=== PATIENT | male | born 1950 | race Caucasian/White ===

== ENCOUNTER 2017-09-30 20:24 | Emergency (ER) | payer OTHER, MEDICAID ==
[~2017-09-30 20:24] MED LIST: CHLO25 PO; DOCU1CAP39 PO; OXYC5 PO; PROT40TA PO
== END 2017-09-30 22:10 | disposition left against medical advice (07) ==
LOC: NED 20:24
DX: R06.02 Shortness of breath (principal)
CPT/HCPCS: 99281

== ENCOUNTER 2017-10-20 21:17 | Observation (INO) | payer OTHER, MEDICAID ==
[~2017-10-20] VITALS: Ht 182.9 cm; Wt 68.9 kg
[2017-10-20 21:24] VITALS: BP 155/89; PULSE 103; RESP 20; TEMP 98.7; O2SAT 95
[2017-10-20] MEDS ORDERED: VENTAER INH (21:36)
[2017-10-20] MEDS ORDERED: PROT40TA PO (21:37)
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
[2017-10-20] MEDS ORDERED: SODIUM CHLORIDE 0.9% FLUSH 10 ML FLUSH IVF PRN (22:00)
[2017-10-20 22:17] LABS: BASOPHIL # 0.1 TH/MM3 (0-0.2); BASOPHIL % 0.8 % (0.0-2.0); EOSINOPHIL # 0.3 TH/MM3 (0-0.4); HEMATOCRIT 44.5 % (39.0-51.0); HEMOGLOBIN 15.1 GM/DL (13.0-17.0); LYMPH % 37.4 % (9.0-44.0); LYMPHOCYTE # 2.3 TH/MM3 (1.0-4.8); MEAN CELL VOLUME 101.2 FL (80.0-100.0); MEAN CORPUSCULAR HEMOGLOBIN 34.3 PG (27.0-34.0); MEAN CORPUSCULAR HGB CONC 33.9 % (32.0-36.0); MEAN PLATELET VOLUME 7.4 FL (7.0-11.0); MONO % 9.1 % (0.0-8.0); MONOCYTE # 0.6 TH/MM3 (0-0.9); NEUT % 48.7 % (16.0-70.0); PLATELET COUNT 236 TH/MM3 (150-450); RED CELL DISTRIBUTION WIDTH 14.4 % (11.6-17.2); WHITE BLOOD COUNT 6.3 TH/MM3 (4.0-11.0)
[2017-10-20 22:31] LABS: PROTHROMBIN TIME - PATIENT 10.1 SEC (9.8-11.6)
[2017-10-20 22:33] LABS: ALBUMIN 3.6 GM/DL (3.4-5.0); DIRECT BILIRUBIN ADULT 0.1 MG/DL (0.0-0.2)
[2017-10-20 22:36] LABS: BICARBONATE 22.2 MEQ/L (21.0-32.0); BLOOD UREA NITROGEN 5 MG/DL (7-18); CALCIUM 7.7 MG/DL (8.5-10.1); CHLORIDE 108 MEQ/L (98-107); CREATININE 0.88 MG/DL (0.60-1.30); GLOMERULAR FILTRATION RATE 86 ML/MIN (>89); GLUCOSE,RANDOM 99 MG/DL (74-106); MAGNESIUM 1.9 MG/DL (1.5-2.5); SODIUM (NA) 143 MEQ/L (136-145)
[2017-10-20 22:37] LABS: INDIRECT BILIRUBIN 0.2 MG/DL (0.0-0.8); TOTAL BILIRUBIN ADULT 0.3 MG/DL (0.2-1.0); TOTAL PROTEIN 6.8 GM/DL (6.4-8.2)
[2017-10-20 22:41] LABS: TROPONIN I LESS THAN 0.02 NG/ML (0.02-0.05)
[2017-10-21] VITALS (11 sets, daily range): BP systolic 108–148; BP diastolic 61–79; PULSE 66–140; RESP 16–24; TEMP 98–98.6; O2SAT 94–97
--- NOTE | 2017-10-21 01:21 | PD ---
Physical Exam Narrative I, Dr. Bernard, have reviewed the advance practice practitioner's documentation and am in agreement, met with the patient face to face, made the diagnosis, and the medical decision making was done by me. *My assessment and Findings: ACS vs. alcohol intoxication vs. musculoskeletal pain vs. GERD 67yo M here with c/o left sided chest pain. Said he had some numbness/tingling in his left arm as well. Pt currently has no chest pain. Pt did drink alcohol and drinks daily. +Cig smoker. Pt has expiratory wheezing on exam and denies any worsening sob but does want nebulizer treatments so they were given. Also given prednisone. Pt likely wheezing at baseline. Labs reviewed, no leukocytosis. H/H normal. Troponin negative. AST elevated at 75. Blood alcohol 291. CXR showed no evidence of acute cardiopulmonary disease. Pt last had stress test in 2014 as per our record and he said it has been a few years. Although pt is intoxicated, he is 67yo and has cardiac risk factors so will admit him for observation for chest pain center. Will also place pt on CIWA. Data Data Last Documented VS Vital Signs Date Time Temp Pulse Resp B/P (MAP) Pulse Ox O2 Delivery O2 Flow Rate FiO2 10/20/17 23:13 Room Air 10/20/17 21:24 98.7 103 20 155/89 (111) 95 Orders Orders Electrocardiogram (10/20/17 21:49) Basic Metabolic Panel (Bmp) (10/20/17 21:49) Ckmb (Isoenzyme) Profile (10/20/17 21:49) Complete Blood Count With Diff (10/20/17 21:49) Magnesium (Mg) (10/20/17 21:49) Prothrombin Time / Inr (Pt) (10/20/17 21:49) Act Partial Throm Time (Ptt) (10/20/17 21:49) Troponin I (10/20/17 21:49) Lipase (10/20/17 21:49) Ecg Monitoring (10/20/17 21:49) Bilateral Bp Monitoring (10/20/17 21:49) Iv Access Insert/Monitor (10/20/17 21:49) Oximetry (10/20/17 21:49) Oxygen Administration (10/20/17 21:49) Sodium Chloride 0.9% Flush (Ns Flush) (10/20/17 22:00) Alcohol (Ethanol) (10/20/17 21:49) Hepatic Functional Panel (10/20/17 21:59) Chest, Pa & Lat (10/20/17 ) Albuterol-Ipratropium Neb (Duoneb Neb) (10/21/17 01:45) Prednisone (Deltasone) (10/21/17 01:45) Admit Order (Ed Use Only) (10/21/17 01:52) Activity Bed Rest With Brp (10/21/17 01:52) Vital Signs (Adult) Q4H (10/21/17 01:52) Cardiac Rhythm .As Directed (10/21/17 01:52) Notify Dr: Other .PRN (10/21/17 01:52) Notify Parameters (10/21/17 01:52) Resp Oxygen Nasal Cannula (10/21/17 ) Ckmb (Isoenzyme) Profile (10/21/17 01:52) Ckmb (Isoenzyme) Profile (10/21/17 04:52) Troponin I (10/21/17 01:52) Troponin I (10/21/17 04:52) Electrocardiogram (10/21/17 01:52) Electrocardiogram (10/21/17 04:52) ^ Obtain (10/21/17 01:52) Sodium Chloride 0.9% Flush (Ns Flush) (10/21/17 02:00) Sodium Chloride 0.9% Flush (Ns Flush) (10/21/17 09:00) Spray Booth Operator / Telemetry EARL.Q8H (10/21/17 01:52) Alcohol Withdrawal Asmt-Ciwa ONCE (10/21/17 01:57) Flumazenil Inj (Romazicon Inj) (10/21/17 02:00) Lorazepam (Ativan) (10/21/17 02:00) Lorazepam Inj (Ativan Inj) (10/21/17 02:00) Lorazepam (Ativan) (10/21/17 02:00) Lorazepam Inj (Ativan Inj) (10/21/17 02:00) Lorazepam Inj (Ativan Inj) (10/21/17 02:00) Lorazepam Inj (Ativan Inj) (10/21/17 02:00) Labs Laboratory Tests Test 10/20/17 22:06 White Blood Count 6.3 TH/MM3 Red Blood Count 4.40 MIL/MM3 Hemoglobin 15.1 GM/DL Hematocrit 44.5 % Mean Corpuscular Volume 101.2 FL Mean Corpuscular Hemoglobin 34.3 PG Mean Corpuscular Hemoglobin Concent 33.9 % Red Cell Distribution Width 14.4 % Platelet Count 236 TH/MM3 Mean Platelet Volume 7.4 FL Neutrophils (%) (Auto) 48.7 % Lymphocytes (%) (Auto) 37.4 % Monocytes (%) (Auto) 9.1 % Eosinophils (%) (Auto) 4.0 % Basophils (%) (Auto) 0.8 % Neutrophils # (Auto) 3.0 TH/MM3 Lymphocytes # (Auto) 2.3 TH/MM3 Monocytes # (Auto) 0.6 TH/MM3 Eosinophils # (Auto) 0.3 TH/MM3 Basophils # (Auto) 0.1 TH/MM3 CBC Comment DIFF FINAL Differential Comment Prothrombin Time 10.1 SEC Prothromb Time International Ratio 1.0 RATIO Activated Partial Thromboplast Time 24.7 SEC Blood Urea Nitrogen 5 MG/DL Creatinine 0.88 MG/DL Random Glucose 99 MG/DL Calcium Level 7.7 MG/DL Magnesium Level 1.9 MG/DL Sodium Level 143 MEQ/L Potassium Level 4.1 MEQ/L Chloride Level 108 MEQ/L Carbon Dioxide Level 22.2 MEQ/L Anion Gap 13 MEQ/L Estimat Glomerular Filtration Rate 86 ML/MIN Total Bilirubin 0.3 MG/DL Direct Bilirubin 0.1 MG/DL Indirect Bilirubin 0.2 MG/DL Aspartate Amino Transf (AST/SGOT) 75 U/L Alanine Aminotransferase (ALT/SGPT) 64 U/L Alkaline Phosphatase 95 U/L Total Creatine Kinase 84 U/L Troponin I LESS THAN 0.02 NG/ML Total Protein 6.8 GM/DL Albumin 3.6 GM/DL Lipase 314 U/L Ethyl Alcohol Level 291 MG/DL [facility] Supervised Visit with SARA: Yes Interpretation(s) EKG: Sinus tachycardia at 102bpm. Normal axis. No significant ST elevation or depression. Diagnosis Primary Impression: Chest pain Qualified Codes: R07.9 - Chest pain, unspecified Additional Impressions: Alcohol abuse COPD (chronic obstructive pulmonary disease) Qualified Codes: J44.9 - Chronic obstructive pulmonary disease, unspecified Admitting Information Admitting Physician Requests: Observation Med/Other Pt SpecificInfo: Prescription(s) given Scripts Albuterol 18 GM Inh (Ventolin Hfa 18 GM Inh) 90 Mcg/Act Aer 2 PUFF INH Q4H Y for SHORTNESS OF BREATH, #1 INHALER 0 Refills Prov: Meri Bernard DO 10/21/17 Prednisone (Prednisone) 50 Mg Tab 50 MG PO DAILY for 5 Days, #5 TAB 0 Refills Prov: Meri Bernard DO 10/21/17 Meri Bernard DO Oct 21, 2017 01:21
[2017-10-21] MEDS ORDERED: predniSONE 50 MG TAB PO ONE (01:45)
[2017-10-21] MEDS: RESP: ALBUTEROL 2.5 MG/IPRATROPIUM 0.5 MG NEB (SCH) INH (01:52)
[2017-10-21] MEDS ORDERED: PRED50 PO (01:56)
[2017-10-21] MEDS ORDERED: VENTAER INH (01:56)
[2017-10-21] MEDS ORDERED: SODIUM CHLORIDE 0.9% FLUSH 10 ML FLUSH IV FLUSH PRN (02:00)
[2017-10-21] MEDS ORDERED: LORazepam 2 MG TAB PO PRN (02:00)
[2017-10-21] MEDS ORDERED: LORazepam 2 MG/ML VIAL IV PUSH PRN ×4 (02:00)
[2017-10-21] MEDS ORDERED: FLUMAZENIL 0.5 MG/5 ML VIAL IV PUSH PRN (02:00)
[2017-10-21] MEDS ORDERED: LORazepam 1 MG TAB PO PRN (02:00)
[2017-10-21 02:58] LABS: TROPONIN I LESS THAN 0.02 NG/ML (0.02-0.05)
[2017-10-21 06:02] LABS: TROPONIN I LESS THAN 0.02 NG/ML (0.02-0.05)
[2017-10-21] MEDS ORDERED: RESP: ALBUTEROL 2.5 MG/IPRATROPIUM 0.5 MG NEB (SCH) INH ONE (08:15)
[2017-10-21] MEDS ORDERED: RESP: ALBUTEROL 2.5 MG/IPRATROPIUM 0.5 MG NEB (PRN) INH (08:15)
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
[2017-10-21] MEDS: SODIUM CHLORIDE 0.9% FLUSH 10 ML FLUSH IV FLUSH SCH ×2 (09:00→21:00)
[2017-10-21] MEDS: PANTOPRAZOLE SOD 40 MG DELAYED RELEASE TAB PO SCH (09:04)
--- NOTE | 2017-10-21 11:43 | EKG ---
Date Performed: 10/21/2017 Time Performed: 05:12:09 PTAGE: 67 years EKG: Sinus rhythm NORMAL ECG PREVIOUS TRACING : 10/01/2015 16.51 Since previous tracing, no significant change noted DOCTOR: Ameya Harris Interpretating Date/Time 10/21/2017 11:43:10
--- NOTE | 2017-10-21 11:44 | EKG ---
Date Performed: 10/21/2017 Time Performed: 02:39:31 PTAGE: 67 years EKG: Sinus rhythm NORMAL ECG PREVIOUS TRACING : 10/20/2017 21.27 Since previous tracing, no significant change noted DOCTOR: Ameya Harris Interpretating Date/Time 10/21/2017 11:43:49
--- NOTE | 2017-10-21 11:45 | EKG ---
Date Performed: 10/20/2017 Time Performed: 21:27:41 PTAGE: 67 years EKG: SINUS TACHYCARDIA ABNORMAL RHYTHM ECG PREVIOUS TRACING : 10/20/2017 21.27 Since previous tracing, no significant change noted DOCTOR: Ameya Harris Interpretating Date/Time 10/21/2017 11:44:43
[2017-10-21] MEDS ORDERED: SODIUM CHLOR 0.9% 1000 ML INJ 1,000 ML IV ONE (11:56)
[2017-10-21] MEDS ORDERED: chlordiazePOXIDE 25 MG CAP PO PRN (12:15)
--- NOTE | 2017-10-21 16:01 | RADRPT ---
EXAM DATE/TIME: 10/20/2017 22:34 [facility] COMPARISON: CHEST SINGLE AP, October 01, 2015, 16:43. INDICATIONS : Chest pain. MEDICAL HISTORY : None. SURGICAL HISTORY : None. ENCOUNTER: Initial ACUITY: 1 day PAIN SCORE: 0/10 LOCATION: Bilateral chest FINDINGS: PA and lateral views of the chest demonstrate the lungs to be symmetrically aerated without evidence of mass, infiltrate or effusion. The cardiomediastinal contours are unremarkable. Osseous structure s are intact. CONCLUSION: No evidence of acute cardiopulmonary disease. Kendall Bailon MD on October 20, 2017 at 22:44 Board Certified Radiologist. This report was verified electronically.
[2017-10-22] VITALS (8 sets, daily range): BP systolic 133–159; BP diastolic 67–89; PULSE 78–107; RESP 16–20; TEMP 96.6–98.1; O2SAT 93–97
[2017-10-22] MEDS: PANTOPRAZOLE SOD 40 MG DELAYED RELEASE TAB PO SCH (10:16)
[2017-10-22] MEDS: SODIUM CHLORIDE 0.9% FLUSH 10 ML FLUSH IV FLUSH SCH (10:17)
--- NOTE | 2017-10-22 11:36 | HHI.PR ---
Subjective Remarks The patient was resting comfortably in bed. He said he still had a little bit of lingering discomfort in his left elbow and hand but otherwise was feeling better. He said that he had coffee at around 5 AM and did not know that that would affect a stress test. He is looking forward to going home tomorrow. He says he is still feeling shaky. He said he has had a seizure from alcohol withdrawal couple of years ago. He said that he drank heavily last week because he is currently moving. Discussed with nursing. Objective Vitals Vital Signs Date Time Temp Pulse Resp B/P (MAP) Pulse Ox O2 Delivery O2 Flow Rate FiO2 10/22/17 08:39 96 21 10/22/17 08:00 96.6 82 20 157/89 (111) 95 10/22/17 04:00 78 10/22/17 03:46 21 10/22/17 01:59 98.1 82 16 159/86 (110) 96 10/21/17 21:23 98.6 84 17 128/74 (92) 96 10/21/17 15:40 98.6 88 16 145/76 (99) 94 10/21/17 12:30 107 I/O 10/21/17 10/21/17 10/21/17 10/22/17 10/22/17 10/22/17 07:00 15:00 23:00 07:00 15:00 23:00 Intake Total 200 ml 240 ml Output Total 1400 ml Balance -1200 ml 240 ml Intake Oral 200 ml 240 ml Output Urine Total 1400 ml # Voids 2 2 Result Diagram: 10/20/176 10/20/176 Imaging Last Impressions Chest X-Ray 10/20/17 0000 Signed Impressions: Service Date/Time: Friday, October 20, 2017 22:34 - CONCLUSION: No evidence of acute cardiopulmonary disease. Kendall Bailon MD Objective Remarks GENERAL: This is a well-nourished, well-developed patient, slightly tremulous. HEENT: Head is atraumatic and normocephalic. Neck is supple without lymphadenopathy and trachea is midline. No JVD or carotid bruits. CARDIOVASCULAR: Regular rate and rhythm without murmurs, gallops, or rubs. RESPIRATORY: Clear to auscultation bilaterally. GASTROINTESTINAL: Abdomen is nontender, nondistended. Abdomen soft. No obvious pulsatile mass or bruit. No CVA tenderness. Strong femoral pulses bilaterally. Normal bowel sounds in all quadrants. MUSCULOSKELETAL: Patient is moving upper and lower extremities freely. NEUROLOGICAL: Patient is alert and oriented. Cranial nerves 2-12 are grossly intact. No focal deficits and speech is clear. PSYCH: Mood and affect appropriate. Medications and IVs Current Medications Medications (Trade) Dose Ordered Sig/Renato Route Start Time Stop Time Status Last Admin (NS Flush) 2 ml UNSCH PRN IVF 10/20/17 22:00 (NS Flush) 2 ml UNSCH PRN IV FLUSH 10/21/17 02:00 (NS Flush) 2 ml BID IV FLUSH 10/21/17 09:00 10/22/17 10:17 (Romazicon Inj) 0.2 mg Q1M PRN IV PUSH 10/21/17 02:00 (Ativan) 1 mg Q4H PRN PO 10/21/17 02:00 10/21/17 09:04 (Ativan Inj) 1 mg Q4H PRN IV PUSH 10/21/17 02:00 10/21/17 12:04 (Ativan) 2 mg Q2H PRN PO 10/21/17 02:00 (Ativan Inj) 2 mg Q2H PRN IV PUSH 10/21/17 02:00 (Ativan Inj) 2 mg Q1H PRN IV PUSH 10/21/17 02:00 (Ativan Inj) 2 mg Q15M PRN IV PUSH 10/21/17 02:00 (Duoneb Neb) 1 ampule Q4HR NEB PRN INH 10/21/17 08:15 (Protonix) 40 mg DAILY PO 10/21/17 09:00 10/22/17 10:16 (Librium) 25 mg STAT PRN PO 10/21/17 12:15 10/21/17 12:27 (Librium) 10 mg TID PO 10/21/17 18:00 10/22/17 10:16 A/P Assessment and Plan Chest pain Patient has had serial cardiac enzymes and EKGs for ruling out purposes. He has been evaluated by Dr. Ameya Harris of cardiology in the chest pain center. - He will undergo a Lexiscan and will be discharged home if the stress test is nonischemic. Unable to have stress test as had coffee 10/22. - He should follow-up with PCP and cardiology upon discharge. - telemetry. COPD Not in exacerbation. - DuoNeb's as needed. - smoking cessation instruction. - Resume his inhaler. Alcohol abuse Requiring CIWA protocol. - Patient has been counseled importance of reducing his alcohol intake. - Librium for now. - CIWA protocol. PPx: Ha Argueta DO Oct 22, 2017 11:36
[2017-10-23] VITALS (7 sets, daily range): BP systolic 111–154; BP diastolic 63–85; PULSE 81–104; RESP 16–22; TEMP 97.4–98.2; O2SAT 92–95
[2017-10-23] MEDS: SODIUM CHLORIDE 0.9% FLUSH 10 ML FLUSH IV FLUSH SCH ×2 (02:30→08:07)
[2017-10-23] MEDS: PANTOPRAZOLE SOD 40 MG DELAYED RELEASE TAB PO SCH (08:08)
[2017-10-23] MEDS ORDERED: RESP: ALBUTEROL 2.5 MG/3 ML NEB (SCH) NEB ONE (09:45)
--- NOTE | 2017-10-23 09:48 | HHI.PR ---
Subjective Remarks Follow-up chest pain. States he is better he is pretty good. During the episode of chest pain prior to admission, he was upset after having an argument. His chest wall is also tender on palpation. He also has mild expiratory wheezing but denies shortness of breath, fever, chills, nausea, cold sweating and dizziness. Discussed with nurse Objective Vitals Vital Signs Date Time Temp Pulse Resp B/P (MAP) Pulse Ox O2 Delivery O2 Flow Rate FiO2 10/23/17 08:00 98.0 89 22 111/79 (90) 92 10/23/17 08:00 81 10/23/17 07:00 Room Air 21 10/23/17 04:00 98.2 89 17 114/63 (80) 94 10/23/17 04:00 Room Air 10/23/17 03:41 88 10/23/17 02:24 97.4 86 17 154/84 (107) 94 10/23/17 02:24 Room Air 10/23/17 00:40 97.8 82 16 113/73 (86) 94 10/22/17 19:55 97 21 10/22/17 16:00 96.7 93 20 137/67 (90) 95 10/22/17 12:00 97.6 85 20 133/78 (96) 93 I/O 10/22/17 10/22/17 10/22/17 10/23/17 10/23/17 10/23/17 07:00 15:00 23:00 07:00 15:00 23:00 Intake Total 240 ml 720 ml 810 ml Balance 240 ml 720 ml 810 ml Intake Oral 240 ml 720 ml 810 ml # Voids 2 5 5 # Bowel Movements 1 1 Result Diagram: 10/20/17220510/20/172205 Imaging Last Impressions Chest X-Ray 10/20/17 0000 Signed Impressions: Service Date/Time: Friday, October 20, 2017 22:34 - CONCLUSION: No evidence of acute cardiopulmonary disease. Kendall Bailon MD Objective Remarks GENERAL: This is a well-nourished, well-developed patient in no distress CARDIOVASCULAR: Regular rate and rhythm without murmurs, gallops, or rubs. RESPIRATORY: Equal breath sounds with mild expiratory wheezes. No retractions. Tender chest wall GASTROINTESTINAL: Abdomen is nontender, nondistended. Abdomen soft. No obvious pulsatile mass or bruit. No CVA tenderness. Strong femoral pulses bilaterally. Normal bowel sounds in all quadrants. MUSCULOSKELETAL: Patient is moving upper and lower extremities freely. NEUROLOGICAL: Patient is alert and oriented. Cranial nerves 2-12 are grossly intact. No focal deficits and speech is clear. PSYCH: Mood and affect appropriate. Procedures none A/P Problem List: (1) Chest pain ICD Code: R07.9 - Chest pain Status: Acute Assessment and Plan Chest pain. Atypical. Ruled out for [place]. For stress test today if negative chest pain could have been from anxiety versus chest wall inflammation versus COPD. At this time he is pain-free. COPD. Asymptomatic at this time. Scheduled nebulization because of mild expiratory wheezes. Tobacco cessation Alcohol abuse. Counseled continue [facility] protocol PPx: SCDs Discharge Planning Possible discharge if negative stress test Problem Qualifiers (1) Chest pain: Qualified Codes: R07.9 - Chest pain, unspecified Ash Dumont MD Oct 23, 2017 09:48
--- NOTE | 2017-10-23 09:49 | HHI.DCPOC ---
Discharge Care Plan Diagnosis: (1) Chest pain Your Health Problems Are: Difficulty with ADL Exercise Tolerance Goals to Promote Your Health * To prevent worsening of your condition and complications * To maintain your health at the optimal level Directions to Meet Your Goals Take your medications as prescribed Follow your dietary instruction Follow activity as directed Keep your appointments as scheduled Take your immunizations and boosters as scheduled If your symptoms worsen call your PCP, if no PCP go to Urgent Care Center or Emergency Room Smoking is Dangerous to Your Health. Avoid second hand smoke Call the 24-hour hour crisis hotline for domestic abuse at Ash Dumont MD Oct 23, 2017 09:49
[2017-10-23] MEDS ORDERED: REGADENOSON INJ 0.4 MG/5 ML SYR ONE (10:55)
[2017-10-23] MEDS ORDERED: RESP: ALBUTEROL 2.5 MG/IPRATROPIUM 0.5 MG NEB (SCH) NEB (12:00)
--- NOTE | 2017-10-23 12:20 | RADRPT ---
EXAM DATE/TIME: 10/23/2017 10:37 [facility] COMPARISON: No previous studies available for comparison. INDICATIONS : Left sided chest pain radiating to left arm with dyspnea. Angina. DOSE: 25.9 mCi Tc99m Myoview at stress. 8.1 mCi Tc99m Myoview at rest. 0.4 mg Lexiscan STRESS SYMPTOMS: None. EJECTION FRACTION: 69% MEDICAL HISTORY : Chronic obstructive pulmonary disease. SURGICAL HISTORY : Total knee replacement, right. Cholecystectomy. Left hand surgery. ENCOUNTER: Initial ACUITY: 2 days PAIN SCALE: 3/10 LOCATION: Left chest TECHNIQUE: The patient underwent pharmacologic stress with infusion of prescribed dose. Continuous ECG tracing was monitored during stress. Gated SPECT imaging was performed after stress and conventional SPECT i maging was performed at rest. The examination was performed on a SPECT/CT scanner, both attenuation and non-corrected datasets were reviewed. FINDINGS: DISTRIBUTION: The maximum perfused segment at stress is in the <anterolateral wall> wall. PERFUSION STUDY: The pattern of perfusion at stress is within normal limits. GATED STUDY: There is intact wall motion and thickening without hypokinetic or dyskinetic segments. CONCLUSION: Normal examination. RISK CATEGORY: Low (<1% Annual Mortality Rate) Ian Murphy MD on October 23, 2017 at 12:17 Board Certified Radiologist. This report was verified electronically.
--- NOTE | 2017-10-23 13:11 | HHI.DS ---
Discharge Summary Admission Date Oct 21, 2017 at 01:54 Discharge Date: Oct 23, 2017 Admitting Diagnosis Chest pain (1) Chest pain ICD Code: R07.9 - Chest pain Diagnosis: Principal Status: Acute Procedures none Brief History - From Admission This is a 67-year-old male with history of COPD, tobacco abuse, and alcohol abuse that presents to ED via [facility] with a complaint of chest discomfort and arm pain. CBC/BMP: 10/20/176 10/20/172205 Significant Findings Laboratory Tests Test 10/20/17 22:06 10/21/17 02:28 10/21/17 04:30 Red Blood Count 4.40 MIL/MM3 (4.50-5.90) Mean Corpuscular Volume 101.2 FL (80.0-100.0) Mean Corpuscular Hemoglobin 34.3 PG (27.0-34.0) Monocytes (%) (Auto) 9.1 % (0.0-8.0) Blood Urea Nitrogen 5 MG/DL (7-18) Calcium Level 7.7 MG/DL (8.5-10.1) Chloride Level 108 MEQ/L (98-107) Estimat Glomerular Filtration Rate 86 ML/MIN (>89) Aspartate Amino Transf (AST/SGOT) 75 U/L (15-37) Troponin I LESS THAN 0.02 NG/ML LESS THAN 0.02 NG/ML LESS THAN 0.02 NG/ML Ethyl Alcohol Level 291 MG/DL (0-5) Imaging Last Impressions Myocardial Perfusion Scan Nuc Med 10/23/17 0600 Signed Impressions: Service Date/Time: Monday, October 23, 2017 10:37 - CONCLUSION: Normal examination. RISK CATEGORY: Low (<1%% Annual Mortality Rate) Ian Murphy MD Chest X-Ray 10/20/17 0000 Signed Impressions: Service Date/Time: Friday, October 20, 2017 22:34 - CONCLUSION: No evidence of acute cardiopulmonary disease. Kendall Bailon MD PE at Discharge GENERAL: This is a well-nourished, well-developed patient in no distress CARDIOVASCULAR: Regular rate and rhythm without murmurs, gallops, or rubs. RESPIRATORY: Equal breath sounds with mild expiratory wheezes. No retractions. Tender chest wall GASTROINTESTINAL: Abdomen is nontender, nondistended. Abdomen soft. No obvious pulsatile mass or bruit. No CVA tenderness. Strong femoral pulses bilaterally. Normal bowel sounds in all quadrants. MUSCULOSKELETAL: Patient is moving upper and lower extremities freely. LUE no injury or limitation of ROM NEUROLOGICAL: Patient is alert and oriented. Cranial nerves 2-12 are grossly intact. No focal deficits and speech is clear. PSYCH: Mood and affect appropriate. Hospital Course Chest pain. Atypical. Ruled out for [place]. Negative stress test. Chest pain could have been from anxiety versus chest wall inflammation versus COPD. At this time he is pain-free. COPD. Asymptomatic at this time. Scheduled nebulization because of mild expiratory wheezes. Tobacco cessation Alcohol abuse. Counseled continue CIWA protocol PPx: SCDs Pt Condition on Discharge: Stable Discharge Disposition: Discharge Home Discharge Time: > 30 minutes Discharge Instructions DIET: Follow Instructions for: Heart Healthy Diet Activities you can perform: Regular-No Restrictions Activities to Avoid: Driving Follow up Referrals: PCP Follow-up - 2-3 Days Continued Medications: Albuterol 18 GM Inh (Ventolin Hfa 18 GM Inh) 90 Mcg/Act Aer 2 PUFF INH Q4-6H PRN for SHORTNESS OF BREATH, #1 INHALER 0 Refills Pantoprazole (Protonix) 40 Mg Tab 40 MG PO DAILY for Reflux, #30 TAB 0 Refills Ash Dumont MD Oct 23, 2017 13:11
== END 2017-10-23 14:42 | disposition home or self-care (01) ==
LOC: NEPC 21:17 → NEDA 10-21 01:54 → NEPGCP 10-21 02:46 → N04B 10-23 02:24
PROVIDERS: ADMIT Internal Medicine; ATTEND Internal Medicine
DX: R07.89 Other chest pain (principal); J44.9 Chronic obstructive pulmonary disease, unspecified; R00.0 Tachycardia, unspecified; R94.31 Abnormal electrocardiogram [ECG] [EKG]; R20.0 Anesthesia of skin; R20.2 Paresthesia of skin; H91.90 Unspecified hearing loss, unspecified ear; F17.210 Nicotine dependence, cigarettes, uncomplicated; F10.10 Alcohol abuse, uncomplicated; Y90.8 Blood alcohol level of 240 mg/100 ml or more; Z71.6 Tobacco abuse counseling; Z71.41 Alcohol abuse counseling and surveillance of alcoholic; Z79.899 Other long term (current) drug therapy
CPT/HCPCS: 71046; 78452; 80048; 80076; 80307; 82550; 83690; 83735; 84484; 85025; 85610; 85730; 93005; 93017; 94640; 94664; 96361; 96374; 99285; A9502; G0378; J2060; J2785; J7030; J7512; J7613

== ENCOUNTER 2017-11-26 09:52 | Inpatient (IN) | payer OTHER, MEDICAID, MEDICARE ==
[2017-11-26] VITALS (8 sets, daily range): BP systolic 90–129; BP diastolic 50–82; PULSE 82–98; RESP 18–25; TEMP 97.2–100.6; O2SAT 94–98
[~2017-11-26] VITALS: Ht 182.9 cm; Wt 69.6 kg
[~2017-11-26 09:52] MED LIST changes: -CHLO25 PO; -DOCU1CAP39 PO; -OXYC5 PO; +VENTAER INH
[2017-11-26] MEDS ORDERED: THIAMINE INJ 100 MG in SODIUM CHLORIDE 0.9% INJ 100 ML IV ONE (10:00)
--- NOTE | 2017-11-26 10:28 | PD ---
HPI Chief Complaint: Seizure Time Seen by Provider: 09:58 Travel History International Travel<30 days: No Contact w/Intl Traveler<30days: No Traveled to known affect area: No History of Present Illness HPI This is a 67-year-old gentleman with history of chronic alcohol use, presents here after having a seizure this morning. Patient states he went to his relatives house last night because he was not feeling well. Apparently he had a witnessed tonic-clonic seizure this morning. Patient denies any previous history of seizure disorder. Patient reports that he last drank alcohol a couple days ago. He says he was not intentionally not drinking. He has no intention of stopping drinking. The patient states that he has been drinking since he was in his teens. He reports drinking 3-4 vodka drinks per day but as above has not had anything over the last couple days. There is no reported head or neck pain. There is no reported extremity pain. Patient does report that he is gone through the "shakes" in the past. There was no incontinence to urine. PFSH Past Medical History Asthma: No Blood Disorders: No Anxiety: No Depression: No Heart Rhythm Problems: No Cancer: No Cardiac Catheterization: No Cardiovascular Problems: No High Cholesterol: Yes Chemotherapy: No Chest Pain: Yes Congestive Heart Failure: No COPD: Yes Diabetes: No Diminished Hearing: Yes Endocrine: No Genitourinary: No Immune Disorder: No Implanted Vascular Access Dvce: Yes Musculoskeletal: No Neurologic: No Psychiatric: No Reproductive: No Respiratory: Yes Immunizations Current: No Radiation Therapy: No Sleep Apnea: No Thyroid Disease: No Tetanus Vaccination: > 5 Years Influenza Vaccination: Yes ?: Unknown Past Surgical History Abdominal Surgery: Yes (ETHAN.) Body Medical Devices: states wires placed with facial surgery Cholecystectomy: Yes Coronary Artery Bypass Graft: No Other Surgery: Yes (L HAND X2 ) Social History Alcohol Use: Yes (DAILY ) Tobacco Use: Yes (PACK DAILY ) Substance Use: No (HX : MARIJUANA ) Allergies-Medications (Allergen,Severity, Reaction): Coded Allergies: No Known Allergies (Unverified Allergy, Unknown, 11/26/17) Reported Meds & Prescriptions Reported Meds & Active Scripts Active Reported Protonix (Pantoprazole Sodium) 40 Mg Tab 40 Mg PO DAILY Ventolin Hfa 18 GM Inh (Albuterol Sulfate) 90 Mcg/Act Aer 2 Puff INH Q4-6H PRN Review of Systems Except as stated in HPI: all other systems reviewed are Neg General / Constitutional: No: Fever, Chills HENT: No: Headaches, Neck Pain Cardiovascular: Positive: Other (Patient reports long history of heart murmur.) , No: Chest Pain or Discomfort, Palpitations Respiratory: No: Cough, Shortness of Breath Gastrointestinal: No: Nausea, Vomiting, Diarrhea, Abdominal Pain Genitourinary: No: Dysuria, Incontinence Musculoskeletal: No: Weakness, Pain Neurologic: Positive: Seizures, No: Weakness, Dizziness, Headache, Incontinence Physical Exam Narrative GENERAL: Well-developed well-nourished male in no acute respiratory distress. SKIN: Focused skin assessment warm/dry. HEAD: Atraumatic. Normocephalic. EYES: Pupils equal and round. No scleral icterus. No injection or drainage. ENT: No nasal bleeding or discharge. Mucous membranes pink and moist. NECK: Trachea midline. Supple. CARDIOVASCULAR: Regular rate and rhythm. No murmur appreciated. RESPIRATORY: No accessory muscle use. Clear to auscultation. Breath sounds equal bilaterally. GASTROINTESTINAL: Abdomen soft, non-tender, nondistended. Hepatic and splenic margins not palpable. MUSCULOSKELETAL: No obvious deformities. No clubbing. No cyanosis. No edema. NEUROLOGICAL: Awake and alert. No obvious cranial nerve deficits. Motor grossly within normal limits. Normal speech. He is tremulous. Data Data Last Documented VS Vital Signs Date Time Temp Pulse Resp B/P (MAP) Pulse Ox O2 Delivery O2 Flow Rate FiO2 11/26/17 10:00 89 18 129/82 (98) 98 Room Air 11/26/17 09:57 98.7 Orders Orders Complete Blood Count With Diff (11/26/17 09:58) Alcohol (Ethanol) (11/26/17 09:58) Drug Screen, Random Urine (11/26/17 09:58) Electrocardiogram (11/26/17 ) Ct Brain W/O Iv Contrast(Rout) (11/26/17 ) Blood Glucose (11/26/17 09:58) Ecg Monitoring (11/26/17 09:58) Iv Access Insert/Monitor (11/26/17 09:58) Oximetry (11/26/17 09:58) Comprehensive Metabolic Panel (11/26/17 09:58) Sodium Chloride 0.9% Flush (Ns Flush) (11/26/17 10:00) Thiamine Inj (Thiamine Inj) (11/26/17 10:00) Phenytoin Inj (Dilantin Inj) (11/26/17 11:45) Sodium Chlor 0.9% 1000 Ml Inj (Ns 1000 M (11/26/17 12:30) Place In Observation (11/26/17 ) Vital Signs (Adult) Q4H (11/26/17 13:08) Bedside Glucose EARL.CSUGAR (11/26/17 13:08) Intake + Output EARL.QSHIFT (11/26/17 13:08) Neuro Checks Q4H (11/26/17 13:08) Alcohol Withdrawal Asmt-Ciwa Q4HX18 (11/26/17 13:08) ^ Seizure Precautions (11/26/17 13:08) [employer] Manager / Telemetry EARL.Q8H (11/26/17 13:08) Diet Npo (11/26/17 Lunch) Sodium Chloride 0.9% Flush (Ns Flush) (11/26/17 13:15) Sodium Chloride 0.9% Flush (Ns Flush) (11/26/17 21:00) Sodium Chlor 0.9% 1000 Ml Inj (Ns 1000 M (11/26/17 13:08) Thiamine (Vit B1) (Vitamin B1) (11/30/17 09:00) Eeg Study (11/26/17 ) Consult Cm-Etoh Abuse Dc Plan (11/26/17 ) Flumazenil Inj (Romazicon Inj) (11/26/17 13:15) Lorazepam (Ativan) (11/26/17 13:15) Lorazepam Inj (Ativan Inj) (11/26/17 13:15) Lorazepam (Ativan) (11/26/17 13:15) Lorazepam Inj (Ativan Inj) (11/26/17 13:15) Lorazepam Inj (Ativan Inj) (11/26/17 13:15) Lorazepam Inj (Ativan Inj) (11/26/17 13:15) Scd Bilateral/Knee High EARL.BID (11/26/17 13:08) Prothrombin Time / Inr (Pt) (11/26/17 13:13) Consult Neurology (11/26/17 ) Admit Order (Ed Use Only) (11/26/17 13:08) Labs Laboratory Tests Test 11/26/17 10:00 11/26/17 13:00 White Blood Count 9.6 TH/MM3 Red Blood Count 4.19 MIL/MM3 Hemoglobin 14.6 GM/DL Hematocrit 43.5 % Mean Corpuscular Volume 103.6 FL Mean Corpuscular Hemoglobin 34.9 PG Mean Corpuscular Hemoglobin Concent 33.7 % Red Cell Distribution Width 14.5 % Platelet Count 162 TH/MM3 Mean Platelet Volume 8.8 FL Neutrophils (%) (Auto) 87.7 % Lymphocytes (%) (Auto) 4.6 % Monocytes (%) (Auto) 7.4 % Eosinophils (%) (Auto) 0.2 % Basophils (%) (Auto) 0.1 % Neutrophils # (Auto) 8.4 TH/MM3 Lymphocytes # (Auto) 0.4 TH/MM3 Monocytes # (Auto) 0.7 TH/MM3 Eosinophils # (Auto) 0.0 TH/MM3 Basophils # (Auto) 0.0 TH/MM3 CBC Comment DIFF FINAL Differential Comment Blood Urea Nitrogen 7 MG/DL Creatinine 1.00 MG/DL Random Glucose 224 MG/DL Total Protein 6.9 GM/DL Albumin 3.4 GM/DL Calcium Level 8.9 MG/DL Alkaline Phosphatase 171 U/L Aspartate Amino Transf (AST/SGOT) 231 U/L Alanine Aminotransferase (ALT/SGPT) 186 U/L Total Bilirubin 1.0 MG/DL Sodium Level 129 MEQ/L Potassium Level 3.7 MEQ/L Chloride Level 92 MEQ/L Carbon Dioxide Level 21.5 MEQ/L Anion Gap 16 MEQ/L Estimat Glomerular Filtration Rate 74 ML/MIN Ethyl Alcohol Level LESS THAN 3 MG/DL Urine Opiates Screen NEG Urine Barbiturates Screen NEG Urine Amphetamines Screen NEG Urine Benzodiazepines Screen NEG Urine Cocaine Screen NEG Urine Cannabinoids Screen POS MDM Medical Decision Making Medical Screen Exam Complete: Yes Emergency Medical Condition: Yes Differential Diagnosis Alcohol withdrawal seizure versus new onset seizure disorder versus metabolic derangement Narrative Course 67-year-old male history of alcohol abuse, presents here after having first seizure. Patient states she has not had a drink in a few days. Patient's alcohol level 0. CT brain shows no evidence of acute process. He has been loaded with 1 g of IV Dilantin. He will be admitted for observation. He will need an EEG. Case was discussed with the admitting hospitalist who is agreeable. He also has a sodium of 129 which will be corrected. Blood sugar is elevated over 200 which likely secondary to his history of pancreatic injury. Diagnosis Primary Impression: New onset seizure Additional Impressions: Hyponatremia Hyperglycemia Alcohol abuse Admitting Information Admitting Physician Requests: Observation Farhat Muhammad MD November 26, 2017 10:28
[2017-11-26] MEDS: SODIUM CHLORIDE 0.9% FLUSH 10 ML FLUSH IVF PRN ×3 (10:59→13:44)
[2017-11-26 11:32] LABS: AUTOMATED NEUTROPHIL # 8.4 TH/MM3 (1.8-7.7); BASOPHIL % 0.1 % (0.0-2.0); EOSINOPHIL % 0.2 % (0.0-4.0); HEMATOCRIT 43.5 % (39.0-51.0); HEMOGLOBIN 14.6 GM/DL (13.0-17.0); LYMPH % 4.6 % (9.0-44.0); LYMPHOCYTE # 0.4 TH/MM3 (1.0-4.8); MEAN CELL VOLUME 103.6 FL (80.0-100.0); MEAN CORPUSCULAR HEMOGLOBIN 34.9 PG (27.0-34.0); MEAN CORPUSCULAR HGB CONC 33.7 % (32.0-36.0); MEAN PLATELET VOLUME 8.8 FL (7.0-11.0); MONO % 7.4 % (0.0-8.0); MONOCYTE # 0.7 TH/MM3 (0-0.9); NEUT % 87.7 % (16.0-70.0); PLATELET COUNT 162 TH/MM3 (150-450); RED BLOOD COUNT 4.19 MIL/MM3 (4.50-5.90); RED CELL DISTRIBUTION WIDTH 14.5 % (11.6-17.2); WHITE BLOOD COUNT 9.6 TH/MM3 (4.0-11.0)
[2017-11-26] MEDS ORDERED: PHENYTOIN INJ 1,000 MG in SODIUM CHLORIDE 0.9% INJ 100 ML IV ONE (11:45)
[2017-11-26 11:56] LABS: ALBUMIN 3.4 GM/DL (3.4-5.0); AST (GOT) 231 U/L (15-37); BICARBONATE 21.5 MEQ/L (21.0-32.0); BLOOD UREA NITROGEN 7 MG/DL (7-18); CALCIUM 8.9 MG/DL (8.5-10.1); CHLORIDE 92 MEQ/L (98-107); GLOMERULAR FILTRATION RATE 74 ML/MIN (>89); GLUCOSE,RANDOM 224 MG/DL (74-106); SODIUM (NA) 129 MEQ/L (136-145)
[2017-11-26 11:57] LABS: ALT (GPT) 186 U/L (12-78)
[2017-11-26 11:59] LABS: ALKALINE PHOSPHATASE 171 U/L (45-117); TOTAL PROTEIN 6.9 GM/DL (6.4-8.2)
[2017-11-26] MEDS ORDERED: LORazepam 2 MG TAB PO PRN (13:15)
[2017-11-26] MEDS ORDERED: LORazepam 1 MG TAB PO PRN (13:15)
[2017-11-26] MEDS ORDERED: SODIUM CHLORIDE 0.9% FLUSH 10 ML FLUSH IV FLUSH PRN (13:15)
[2017-11-26] MEDS ORDERED: LORazepam 2 MG/ML VIAL IV PUSH PRN ×4 (13:15)
[2017-11-26] MEDS ORDERED: FLUMAZENIL 0.5 MG/5 ML VIAL IV PUSH PRN (13:15)
[2017-11-26] MEDS: SODIUM CHLOR 0.9% 1000 ML INJ 1,000 ML IV SCH ×3 (13:33→20:16)
--- NOTE | 2017-11-26 13:56 | RADRPT ---
EXAM DATE: 11/26/2017 10:41 AM EDT AGE/SEX: 67 years / Male INDICATIONS: Seizure. CLINICAL DATA: This is the patient's initial encounter. Patient reports that signs and symptoms have been present for 1 day and indicates a pain score of 0/10. MEDICAL/SURGICAL HISTORY: Chronic obstructive pulmonary disease. ETOH abuse. None. RADIATION DOSE: 56.35 CTDI (mGy) COMPARISON: [facility] [place] CERVICAL [place] W/O CONTRAST, 09/29/2014. . TECHNIQUE: CT of the head without contrast. Using automated exposure control and adjustment of the mA and/or kV according to patient size, radiation dose was kept as low as reasonably achievable to ob tain optimal diagnostic quality images. FINDINGS: The examination demonstrates a small area of encephalomalacia in the right frontal lobe. This is abi lar to the previous dated 09/29/2014. The ventricles are normal in size and configuration. There is no acute intracranial hemorrhage. No ma ss lesion is identified. The appearance of the posterior fossa is unremarkable. The osseous structures of the skull demonstrate degenerative changes in the right temporomandibular j oint but are otherwise intact. CONCLUSION: 1. 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 2. No acute intracranial abnormality. 3. 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 This is only partially visualized. Electronically signed by: Alvin Vaughn MD 11/26/2017 1:54 PM EDT
[2017-11-26] MEDS ORDERED: ONDANSETRON ODT 4 MG TAB PO PRN (15:00)
--- NOTE | 2017-11-26 15:01 | HHI.HP ---
[facility] No Primary Care Physician Admission Diagnosis new onset seizure, hyponatremia, hypeglycemia, elevated liver enzyme Diagnoses: Travel History International Travel<30 Days: No Contact w/Intl Traveler <30 Da: No Traveled to Known Affected Are: No History of Present Illness 67-year-old male with a history of chronic alcohol abuse who presents following seizure this morning while visiting family. No family at bedside, and history is limited secondary to postictal state, generalized confusion. She reports feeling fine this morning however. Denies any recent illness. He reports that he quit drinking beer about 2 days ago. He denies any previous history of seizures. Currently he says he feels all right. Denies any chest pain, shortness of breath, nausea, vomiting, lightheadedness, dizziness. Review of Systems Except as stated in HPI: all other systems reviewed are Neg Past Family Social History Past Medical History Chronic alcoholism Past Surgical History Hand surgeries in the past Reported Medications Patient takes no medications. Allergies: Coded Allergies: No Known Allergies (Unverified Allergy, Unknown, 11/26/17) Family History Patient denies any family history of diabetes, hypertension, strokes Social History Patient smokes one half pack per day for his whole life he says. Patient drinks 6 beers per day. Patient quit drinking liquor 6 weeks ago. His last drink was 2 days ago. He denies any illicit drugs. Physical Exam Vital Signs Vital Signs Date Time Temp Pulse Resp B/P (MAP) Pulse Ox O2 Delivery O2 Flow Rate FiO2 11/26/17 13:38 89 18 117/71 (86) 98 Nasal Cannula 2.00 11/26/17 10:00 89 18 129/82 (98) 98 Room Air 11/26/17 10:00 100 Room Air 11/26/17 09:57 98.7 97 25 129/82 (98) Physical Exam GENERAL: This is a well-nourished, well-developed patient, in no apparent distress. Patient disoriented to year and date. Carries on appropriate conversation however is generally confused SKIN: No rashes, ecchymoses or lesions. Cool and dry. HEAD: Atraumatic. Normocephalic. No temporal or scalp tenderness. EYES: Pupils equal round and reactive. Extraocular motions intact. No scleral icterus. No injection or drainage. ENT: Nose without bleeding, purulent drainage or septal hematoma. Throat without erythema, tonsillar hypertrophy or exudate. Uvula midline. Airway patent. NECK: Trachea midline. No JVD or lymphadenopathy. Supple, nontender, no meningeal signs. CARDIOVASCULAR: Regular rate and rhythm without murmurs, gallops, or rubs. RESPIRATORY: Clear to auscultation. Breath sounds equal bilaterally. No wheezes , rales, or rhonchi. GASTROINTESTINAL: Abdomen soft, non-tender, nondistended. No hepato-splenomegaly , or palpable masses. No guarding. MUSCULOSKELETAL: Extremities without clubbing, cyanosis, or edema. No joint tenderness, effusion, or edema noted. No calf tenderness. Negative Homans sign bilaterally. NEUROLOGICAL: Awake and alert. Cranial nerves II through XII intact. Motor and sensory grossly within normal limits. Five out of 5 muscle strength in all muscle groups. Normal speech. Ataxia. Laboratory Laboratory Tests Test 11/26/17 10:00 11/26/17 13:00 White Blood Count 9.6 Red Blood Count 4.19 Hemoglobin 14.6 Hematocrit 43.5 Mean Corpuscular Volume 103.6 Mean Corpuscular Hemoglobin 34.9 Mean Corpuscular Hemoglobin Concent 33.7 Red Cell Distribution Width 14.5 Platelet Count 162 Mean Platelet Volume 8.8 Neutrophils (%) (Auto) 87.7 Lymphocytes (%) (Auto) 4.6 Monocytes (%) (Auto) 7.4 Eosinophils (%) (Auto) 0.2 Basophils (%) (Auto) 0.1 Neutrophils # (Auto) 8.4 Lymphocytes # (Auto) 0.4 Monocytes # (Auto) 0.7 Eosinophils # (Auto) 0.0 Basophils # (Auto) 0.0 CBC Comment DIFF FINAL Differential Comment Blood Urea Nitrogen 7 Creatinine 1.00 Random Glucose 224 Total Protein 6.9 Albumin 3.4 Calcium Level 8.9 Alkaline Phosphatase 171 Aspartate Amino Transf (AST/SGOT) 231 Alanine Aminotransferase (ALT/SGPT) 186 Total Bilirubin 1.0 Sodium Level 129 Potassium Level 3.7 Chloride Level 92 Carbon Dioxide Level 21.5 Anion Gap 16 Estimat Glomerular Filtration Rate 74 Ethyl Alcohol Level LESS THAN 3 Urine Opiates Screen NEG Urine Barbiturates Screen NEG Urine Amphetamines Screen NEG Urine Benzodiazepines Screen NEG Urine Cocaine Screen NEG Urine Cannabinoids Screen POS Result Diagram: 11/26/17 1000 11/26/17 1000 Caprinlaina VTE Risk Assessment Caprini VTE Risk Assessment: No/Low Risk (score <= 1) Caprini Risk Assessment Model Point Value = 1 Point Value = 2 Point Value = 3 Point Value = 5 Age 41-60 Minor surgery BMI > 25 kg/m2 Swollen legs Varicose veins or History of unexplained or recurrent spontaneous Oral contraceptives or hormone replacement Sepsis (< 1 month) Serious lung disease, including pneumonia (< 1 month) Abnormal pulmonary function Acute myocardial infarction Congestive heart failure (< 1 month) History of inflammatory bowel disease Medical patient at bed rest Age 61-74 Arthroscopic surgery Major open surgery (> 45 min) Laparoscopic surgery (> 45 min) Malignancy Confined to bed (> 72 hours) Immobilizing plaster cast Central venous access Age >= 75 History of VTE Family history of VTE Factor V Leiden Prothrombin [id number] Lupus anticoagulant Anticardiolipin antibodies Elevated serum homocysteine Heparin-induced thrombocytopenia Other congenital or acquired thrombophilia Stroke (< 1 month) Elective arthroplasty Hip, pelvis, or leg fracture Acute spinal cord injury (< 1 month) Prophylaxis Regimen Total Risk Factor Score Risk Level Prophylaxis Regimen 0-1 Low Early ambulation 2 Moderate Order ONE of the following: *Sequential Compression Device (SCD) *Heparin 5000 units SQ BID 3-4 Higher Order ONE of the following medications: *Heparin 5000 units SQ TID *Enoxaparin/Lovenox 40 mg SQ daily (WT < 150 kg, CrCl > 30 mL/min) *Enoxaparin/Lovenox 30 mg SQ daily (WT < 150 kg, CrCl > 10-29 mL/min) *Enoxaparin/Lovenox 30 mg SQ BID (WT < 150 kg, CrCl > 30 mL/min) AND/OR *Sequential Compression Device (SCD) 5 or more Highest Order ONE of the following medications: *Heparin 5000 units SQ TID (Preferred with Epidurals) *Enoxaparin/Lovenox 40 mg SQ daily (WT < 150 kg, CrCl > 30 mL/min) *Enoxaparin/Lovenox 30 mg SQ daily (WT < 150 kg, CrCl > 10-29 mL/min) *Enoxaparin/Lovenox 30 mg SQ BID (WT < 150 kg, CrCl > 30 mL/min) AND *Sequential Compression Device (SCD) Assessment and Plan Assessment and Plan //Acute suspected alcohol withdrawal seizure = Seizure precautions. EEG. Treatment for alcohol withdrawal as below. Neurology consult pending. //Acute alcohol withdrawal. //Alcohol abuse = CIWA protocol. Thiamine. Continue to monitor. Cessation counseling provided. Case management consult for rehab resources. //Alcoholic hepatitis = Previously with negative hepatitis profile in 2016. Likely secondary to chronic alcohol use. Bilirubin within normal limits. Check INR. //Hyponatremia. 129. Likely secondary to be reported jennifer. Continue to monitor. //Anion gap metabolic acidosis = Gap of 16. Lactate and urinalysis ordered for ketones. Suspect lactic acidosis secondary to chronic liver disease. //Hyperglycemia. 224. No history of diabetes. Likely secondary to stress from seizure. Check A1c. //Tobacco abuse. Cessation counseling provided. Discussed Condition With Patient, nurse, ED physician. Rivera Yang MD November 26, 2017 15:01
[2017-11-26 16:45] LABS: HEMOGLOBIN A1C 4.8 % (4.3-6.0)
[2017-11-26] MEDS: SODIUM CHLORIDE 0.9% FLUSH 10 ML FLUSH IV FLUSH SCH (20:16)
--- NOTE | 2017-11-26 20:30 | MG ---
cc: Mirlande French MD, [place] EEG [id number] REFERRING PHYSICIAN: Dr. Trey Ray 26 - 1 mg Ativan given at 1343 today. EEG is awake, drowsy, asleep without hyperventilation only photic stimulation: The patient apparently has the shakes and tremors when awake, fidgeting during the awake phase. CT shows old encephalomalacia in the right frontal lobe, stable compared to a prior study. Nothing acute. History of alcohol withdrawal versus new onset seizures versus metabolic derangement, admitted with tonic-clonic seizures. Drinks 3-4 vodkas a day since a teenager, stopped drinking a couple of days ago. He also is a smoker, uses marijuana. CURRENT MEDICINES: Dilantin Thiamine Ativan. DESCRIPTION OF RECORD. Some slowing of background predominantly of 4-5 Hz theta frequency. Noted that he is asleep, snoring, some artifact from the EKG cannot be read. EKG portion is artifactual. Some delta waves as the patient is asleep seen as well. No epileptiform features. Photic stimulation with minimal driving response. IMPRESSION: Abnormal electroencephalogram due to background slowing consistent with sleep state versus encephalopathic state. No epileptic activity. Clinical correlation. MD SANFORD Mckeon/ , 08:03 PM , 08:29 PM
[2017-11-26 21:19] LABS: PROTHROMBIN TIME - PATIENT 10.2 SEC (9.8-11.6)
[2017-11-27] VITALS (9 sets, daily range): BP systolic 101–130; BP diastolic 54–76; PULSE 78–97; RESP 17–20; TEMP 98–99.5; O2SAT 93–96
[2017-11-27] MEDS: SODIUM CHLOR 0.9% 1000 ML INJ 1,000 ML IV SCH ×5 (01:30→16:04)
[2017-11-27 05:57] LABS: BACTERIA, URINE RARE /hpf; BILIRUBIN, URINE NEG (NEG); BLOOD, URINE NEG (NEG); GLUCOSE,URINE NEG (NEG); HYALINE CAST, URINE 2 /lpf (RARE); KETONE, URINE 10 mg/dL (NEG); NITRITE,URINE NEG (NEG); PH, URINE 7.5 (5.0-8.5); URINE COLOR YELLOW (YELLW/STRAW); URINE LEUKOCYTE ESTERASE NEG (NEG)
[2017-11-27] MEDS: SODIUM CHLORIDE 0.9% FLUSH 10 ML FLUSH IV FLUSH SCH ×2 (08:24→20:34)
--- NOTE | 2017-11-27 08:32 | EKG ---
Date Performed: 11/26/2017 Time Performed: 10:05:53 PTAGE: 67 years EKG: Sinus rhythm CONSIDER SEPTAL MYOCARDIAL INFARCTION, AGE INDETERMINATE ABNORMAL ECG PREVIOUS TRACING : 10/21/2017 05.12 DOCTOR: Vasyl Morales Interpretating Date/Time 11/27/2017 08:32:19
--- NOTE | 2017-11-27 11:31 | HHI.PR ---
Subjective Remarks Follow up seizure, alcohol withdrawal. The patient denies further seizure activity. Reports pain in his back with movement. No chest pain, dyspnea. Objective Vitals Vital Signs Date Time Temp Pulse Resp B/P (MAP) Pulse Ox O2 Delivery O2 Flow Rate FiO2 11/27/17 08:03 78 11/27/17 07:56 98.2 88 20 120/70 (87) 96 11/27/17 04:00 97 11/27/17 03:21 99.4 86 18 101/54 (70) 95 11/27/17 00:09 99.5 86 18 102/58 (73) 94 11/26/17 21:07 100.6 87 18 93/50 (64) 94 11/26/17 16:49 82 11/26/17 16:15 97.2 98 20 120/66 (84) 97 11/26/17 15:38 84 16 107/67 (80) 98 11/26/17 15:00 82 20 90/58 (69) 98 11/26/17 13:38 89 18 117/71 (86) 98 Nasal Cannula 2.00 I/O 11/26/17 11/26/17 11/26/17 11/27/17 11/27/17 11/27/17 07:00 15:00 23:00 07:00 15:00 23:00 Intake Total 0 ml Output Total 1750 ml Balance -1750 ml Intake Oral 0 ml Output Urine Total 1750 ml Result Diagram: 11/26/17 1000 11/26/17 1000 Imaging Last Impressions Head CT 11/26/17 0000 Signed Impressions: CONCLUSION: 1. Old area of encephalomalacia in the right frontal lobe stable compared to p revious study. 2. No acute intracranial abnormality. 3. 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 This is only partia lly visualized. Objective Remarks General: Disheveled male in no acute distress. Heart: Regular rate and rhythm. No murmur. Lungs: Clear to auscultation bilaterally. No wheezes, rales, or rhonchi. Breathing is nonlabored. Abdomen: Soft, nontender, nondistended. Extremities: No lower extremity edema. Psych: Alert and oriented. Neuro: Normal speech. No focal deficits noted. Back: Tenderness and spasm in the right thoracic region. No tenderness over the spine. Procedures None Urinary Catheter: No Vascular Central Line Catheter: No A/P Assessment and Plan 1. Seizure: Likely secondary to alcohol withdrawal. EEG report noted. Neurology consult is pending. Seizure precautions. 2. Acute alcohol withdrawal: Continue CIWA protocol. Continue thiamine. 3. Alcohol abuse: Patient has been counseled. 4. Transaminitis: Likely secondary to alcoholic hepatitis. Viral hepatitis panel negative. Monitor labs. 5. Anion gap metabolic acidosis: Recheck labs. 6. Hyperglycemia: Likely secondary to stress reaction. No history of diabetes. A1c is 4.9. 7. Tobacco abuse: Counseled to quit smoking. 8. Hyponatremia: Likely secondary to alcohol abuse. Follow labs. 9. DVT prophylaxis: SCDs. Mac Lopez MD Nov 27, 2017 11:31
[2017-11-27 17:18] LABS: ALBUMIN 2.8 GM/DL (3.4-5.0); ALKALINE PHOSPHATASE 129 U/L (45-117); ALT (GPT) 139 U/L (12-78); AST (GOT) 193 U/L (15-37); BICARBONATE 27.3 MEQ/L (21.0-32.0); BLOOD UREA NITROGEN 3 MG/DL (7-18); CALCIUM 8.4 MG/DL (8.5-10.1); CHLORIDE 103 MEQ/L (98-107); CREATININE 0.63 MG/DL (0.60-1.30); GLOMERULAR FILTRATION RATE 126 ML/MIN (>89); GLUCOSE,RANDOM 122 MG/DL (74-106); SODIUM (NA) 140 MEQ/L (136-145); TOTAL BILIRUBIN ADULT 0.7 MG/DL (0.2-1.0); TOTAL PROTEIN 5.9 GM/DL (6.4-8.2)
[2017-11-27] MEDS ORDERED: THIAMINE HCL 200 MG/2 ML VIAL IM SCH (18:00)
--- NOTE | 2017-11-27 18:03 | MB ---
cc: Morgan Mi MD, PhD Morgan Mi MD PhD DATE: 11/27/2017 REASON FOR CONSULTATION: Seizure. HISTORY OF PRESENT ILLNESS: Mr. Valladares is a 67-year-old man who has a history of alcohol abuse, apparently quit drinking 2 or 3 days ago. He had a seizure in the morning. He does not recall it, but did have a postictal state and was brought to the ER. He has had no prior history of seizures. PAST MEDICAL HISTORY: History of chronic alcoholism. He had surgery in the past. MEDICATIONS AT HOME: None. ALLERGIES: NONE KNOWN. CURRENT MEDICATIONS: Thiamine Zofran, Ativan p.r.n. NEUROLOGIC EXAM: VITAL SIGNS: Blood pressure 123/68, pulse 94, respiratory rate 17, temperature of 98.3. Higher cortical function: He is alert and oriented x3. Normal recall. Follows commands. Speech is fluent. Cranial nerves are intact. Motor exam shows normal strength and tone of all groups. There is no drift. Fine motor skills are normal. Reflexes are symmetric. Cerebellar testing is normal. IMAGING STUDIES: CT of the brain: Old area of encephalomalacia, right frontal lobe, stable compared to a previous study of 09/29/2014. CARDIOLOGY STUDIES: EEG shows slowing, but no epileptiform discharges present. LABORATORY DATA: White count 9600, hemoglobin 14.6, hematocrit 43%, platelets 162,000. Sodium is 140, potassium 3.1, chloride 103, CO2 of 27. The BUN is 3, creatinine 0.6, GFR is 126, glucose 122, AST 193, ALT 139, alkaline phosphatase 129. PT 10.2, INR 1. Tox screen positive for cannabis. UA: pH is 7.5, specific gravity 1.007. IMPRESSION: New onset seizure, probably related to alcohol withdrawal. There is an area of encephalomalacia in the CT. No evidence of any epileptiform discharge on the electroencephalogram. RECOMMENDATIONS: Because of the encephalomalacia in the CT, recommend starting Keppra 500 mg b.i.d. The patient was advised to abstain from alcohol. Also recommend treating with parenteral thiamine. I would like to get an MRI of the brain for further evaluation. He should not drive for at least 6 months of being seizure free. If the MRI is stable, okay for discharge home on Keppra 500 mg b.i.d. to followup with me in my office in 2-3 weeks. Morgan Mi MD, PhD ZARI/ , 05:46 PM , 06:02 PM
[2017-11-27] MEDS: ACETAMINOPHEN 325 MG TAB PO PRN (22:22)
[2017-11-28] VITALS (11 sets, daily range): BP systolic 101–145; BP diastolic 54–88; PULSE 78–90; RESP 17–24; TEMP 97.6–98.6; O2SAT 93–98
[2017-11-28] MEDS: SODIUM CHLOR 0.9% 1000 ML INJ 1,000 ML IV SCH ×2 (05:10→15:08)
[2017-11-28] MEDS: ACETAMINOPHEN 325 MG TAB PO PRN ×4 (06:36→21:09)
[2017-11-28 07:57] LABS: ALBUMIN 2.7 GM/DL (3.4-5.0); ALKALINE PHOSPHATASE 124 U/L (45-117); ALT (GPT) 130 U/L (12-78); AST (GOT) 216 U/L (15-37); BICARBONATE 26.3 MEQ/L (21.0-32.0); BLOOD UREA NITROGEN 5 MG/DL (7-18); CALCIUM 8.3 MG/DL (8.5-10.1); CHLORIDE 101 MEQ/L (98-107); CREATININE 0.61 MG/DL (0.60-1.30); GLOMERULAR FILTRATION RATE 131 ML/MIN (>89); GLUCOSE,RANDOM 90 MG/DL (74-106); SODIUM (NA) 137 MEQ/L (136-145); TOTAL BILIRUBIN ADULT 0.8 MG/DL (0.2-1.0); TOTAL PROTEIN 5.8 GM/DL (6.4-8.2)
[2017-11-28] MEDS ORDERED: GADODIAMIDE PF 287 MG/ML 20 ML VIAL (for RAD MRI) IVCONTRAST ONE (08:06)
[2017-11-28] MEDS ORDERED: POTASSIUM CHLORIDE 10 MEQ CONTROLLED RELEASE TAB PO ONE (08:30)
[2017-11-28] MEDS ORDERED: POTASSIUM CHLORIDE 25 MEQ EFFERVESCENT TAB PO ONE (08:30)
[2017-11-28] MEDS ORDERED: MAGNESIUM OXIDE 400 MG TAB PO ONE (08:30)
--- NOTE | 2017-11-28 08:36 | RADRPT ---
EXAM DATE: 11/28/2017 8:13 AM EDT AGE/SEX: 67 years / Male INDICATIONS: Seizures. CLINICAL DATA: This is the patient's initial encounter. Patient reports that signs and symptoms have been present for 2 days and indicates a pain score of 0/10. MEDICAL/SURGICAL HISTORY: Hypercholesterolemia. Chronic obstructive pulmonary disease. Cholecy stectomy. Orthopedic surgeries. COMPARISON: No prior [facility] exams available for comparison. TECHNIQUE: Multiplanar, multisequence examination of the brain was performed without and with 14 ml O mniscan (gadodiamide) contrast as a single exam dose. FINDINGS: Cerebrum: There is extensive white matter atrophic change, greater than expected for the patient's a ge. Prominent bilateral peribronchial spaces within the region of the basal ganglia. White Matter: There is bilateral periventricular white matter atrophic change with gliosis. There is an area of asymmetric abnormal white matter intensity identified within the right frontal parietal r egion seen on series 9 images 19-21. This is within a subcortical distribution. This extends into the gyri without causing expansion of the gyri. No associated restricted diffusion or enhancement. Small focus of increased T2 signal also identified within the white matter involving the right posterior o ccipital lobe on image 18. Posterior Fossa: The cerebellum and brainstem are intact. The 4th ventricle is midline. The cerebel lopontine angle is unremarkable. The cerebellar tonsils are normal in position. Diffusion Imaging: No focal areas of restricted diffusion are seen. No evidence of acute infarction . Extracranial: The visualized portions of the orbits and paranasal sinuses are unremarkable. Post Contrast: No abnormal areas of parenchymal or dural enhancement. No evidence of blood-brain ba rrier breakdown. CONCLUSION: 1. Abnormal increased T2 signal identified within subcortical white matter involving the right front al parietal region. No restricted diffusion or abnormal enhancement, however, given the asymmetry thi s area is concerning. Differential diagnosis includes old infarct or possible neoplasm. 2. Extensive white matter atrophic changes greater than expected for the patient's age. Electronically signed by: Shahida Perez MD 11/28/2017 8:34 AM EDT
[2017-11-28] MEDS: SODIUM CHLORIDE 0.9% FLUSH 10 ML FLUSH IV FLUSH SCH ×2 (09:08→21:09)
--- NOTE | 2017-11-28 11:31 | HHI.PR ---
Subjective Remarks Follow-up visit seizure, alcohol abuse. Patient seen and examined today laying in bed. Reports dizziness that comes and goes. Reports back pain, describes as aching bilateral side of his back coming down to his hip. Otherwise, denies any episode of seizure overnight that was reported to him, denies SOB/ dyspnea. Denies chest pain, palpitations, headaches. Denies fevers, chills, n/v /d. Denies dysuria. Objective Vitals Vital Signs Date Time Temp Pulse Resp B/P (MAP) Pulse Ox O2 Delivery O2 Flow Rate FiO2 11/28/17 08:00 98.0 86 24 145/88 (107) 96 11/28/17 04:30 98.6 78 17 115/67 (83) 93 11/28/17 03:58 86 11/28/17 00:40 98.6 87 17 124/67 (86) 93 11/28/17 00:00 85 11/27/17 20:33 88 11/27/17 20:15 98.5 87 17 114/71 (85) 93 11/27/17 16:00 98.0 94 17 123/68 (86) 93 11/27/17 12:29 98.2 78 20 130/76 (94) 96 I/O 11/27/17 11/27/17 11/27/17 11/28/17 11/28/17 11/28/17 07:00 15:00 23:00 07:00 15:00 23:00 Intake Total 0 ml 360 ml Output Total 1750 ml Balance -1750 ml 360 ml Intake Oral 0 ml 360 ml Output Urine Total 1750 ml # Voids 2 # Bowel Movements 0 Result Diagram: 11/26/17 1000 11/28/17 0635 Imaging Last Impressions Brain MRI 11/28/17 0000 Signed Impressions: CONCLUSION: 1. Abnormal increased T2 signal identified within subcortical white matter inv olving the right frontal parietal region. No restricted diffusion or abnormal e nhancement, however, given the asymmetry this area is concerning. Differential diagnosis includes old infarct or possible neoplasm. 2. Extensive white matter atrophic changes greater than expected for the patie nt's age. Head CT 11/26/17 0000 Signed Impressions: CONCLUSION: 1. Old area of encephalomalacia in the right frontal lobe stable compared to p revious study. 2. No acute intracranial abnormality. 3. 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 This is only partia lly visualized. Objective Remarks GENERAL: This is a well-nourished, well-developed patient, in no apparent distress. SKIN: Warm and dry. HEENT: Normocephalic. Pupils equal round and reactive. Nose without bleeding. Airway patent. NECK: Trachea midline. No JVD. Supple. CARDIOVASCULAR: Regular rate and rhythm without murmurs, gallops, or rubs. RESPIRATORY: Clear to auscultation. Breath sounds equal bilaterally. No wheezes , rales, or rhonchi. GASTROINTESTINAL: Abdomen soft, non-tender, nondistended. Bowel Sounds normoactive x4. MUSCULOSKELETAL: Extremities without clubbing, cyanosis, or edema. NEUROLOGICAL: Awake and alert. Oriented to time, place, person. No focal neuro deficit. Moves all extremities. Normal speech. Procedures None A/P Assessment and Plan 67-year-old male with a history of chronic alcohol abuse who presents following seizure this morning while visiting family. Seizure: Likely secondary to alcohol withdrawal. -EEG report noted. -Neurology consult appreciate recommendation. Recommended for Keppra 500 mg twice daily. Parenteral thiamine. MRI. -MRI showed abnormal increased T2 signal identified with subcortical white matter involving the right frontoparietal region. No restricted diffusion or abnormal enhancement, however given the symmetry this area is concerning. Differential diagnosis includes old infarct or possible neoplasm. Extensive white matter atrophic changes greater than expected for the patient's age. -Seizure precautions Acute alcohol withdrawal: - Continue CIWA protocol. Continue thiamine IM Alcohol abuse: Patient has been counseled. Transaminitis: Likely secondary to alcoholic hepatitis. Viral hepatitis panel negative. Monitor labs. Anion gap metabolic acidosis: Closed likely secondary to alcohol, dehydration Hyperglycemia: Likely secondary to stress reaction. -No history of diabetes. A1c is 4.9. Tobacco abuse: Counseled to quit smoking. Nicotine patch. Hyponatremia: Likely secondary to alcohol abuse. -Improved DVT prophylaxis: SCDs. Discharge Planning Abnormal MRI, will DC when cleared by neurology Renee Galvan Nov 28, 2017 11:31
[2017-11-28] MEDS ORDERED: THIAMINE HCL 100 MG TAB PO SCH (11:45)
[2017-11-28] MEDS: levETIRAcetam 500 MG TAB PO SCH ×2 (12:21→21:09)
[2017-11-28] MEDS: PANTOPRAZOLE SOD 40 MG DELAYED RELEASE TAB PO SCH (12:21)
[2017-11-28] MEDS: MULTIVITAMIN TAB PO SCH (12:21)
[2017-11-28] MEDS ORDERED: ALBUTEROL SULFATE 90 MCG/ACT HFA 8 GM INHALER INH PRN (13:00)
[2017-11-28] MEDS ORDERED: MECLIZINE HCL 25 MG TAB PO PRN (14:00)
[2017-11-28 14:18] LABS: BICARBONATE 27.2 MEQ/L (21.0-32.0); CALCIUM 8.6 MG/DL (8.5-10.1); CREATININE 0.72 MG/DL (0.60-1.30)
[2017-11-28] MEDS ORDERED: TEMAZEPAM 7.5 MG CAP PO ONE (21:15)
[2017-11-29 00:25] VITALS: BP 115/72; PULSE 97; RESP 18; TEMP 98; O2SAT 94
[2017-11-29] MEDS: SODIUM CHLOR 0.9% 1000 ML INJ 1,000 ML IV SCH ×2 (01:08→11:08)
[2017-11-29 04:15] VITALS: BP 121/81; PULSE 91; RESP 18; TEMP 98.1; O2SAT 94
[2017-11-29 04:32] LABS: AUTOMATED NEUTROPHIL # 4.4 TH/MM3 (1.8-7.7); BASOPHIL % 0.6 % (0.0-2.0); EOSINOPHIL # 0.1 TH/MM3 (0-0.4); HEMATOCRIT 41.2 % (39.0-51.0); HEMOGLOBIN 13.8 GM/DL (13.0-17.0); LYMPH % 20.2 % (9.0-44.0); LYMPHOCYTE # 1.4 TH/MM3 (1.0-4.8); MEAN CELL VOLUME 102.8 FL (80.0-100.0); MEAN CORPUSCULAR HEMOGLOBIN 34.4 PG (27.0-34.0); MEAN CORPUSCULAR HGB CONC 33.4 % (32.0-36.0); MEAN PLATELET VOLUME 8.1 FL (7.0-11.0); MONO % 12.4 % (0.0-8.0); MONOCYTE # 0.8 TH/MM3 (0-0.9); NEUT % 64.8 % (16.0-70.0); PLATELET COUNT 184 TH/MM3 (150-450); RED BLOOD COUNT 4.01 MIL/MM3 (4.50-5.90); RED CELL DISTRIBUTION WIDTH 14.2 % (11.6-17.2); WHITE BLOOD COUNT 6.9 TH/MM3 (4.0-11.0)
[2017-11-29 05:09] LABS: BICARBONATE 25.3 MEQ/L (21.0-32.0); CALCIUM 8.9 MG/DL (8.5-10.1); CREATININE 0.65 MG/DL (0.60-1.30); MAGNESIUM 1.7 MG/DL (1.5-2.5)
[2017-11-29] MEDS: ACETAMINOPHEN 325 MG TAB PO PRN ×3 (06:11→21:40)
[2017-11-29 07:24] VITALS: PULSE 81
[2017-11-29 08:00] VITALS: BP 129/73; PULSE 85; RESP 16; TEMP 98.3; O2SAT 95
[2017-11-29] MEDS ORDERED: BACLOFEN 10 MG TAB PO ONE (08:30)
[2017-11-29] MEDS: SODIUM CHLORIDE 0.9% FLUSH 10 ML FLUSH IV FLUSH SCH ×2 (08:51→21:40)
[2017-11-29] MEDS: levETIRAcetam 500 MG TAB PO SCH ×2 (08:51→21:40)
[2017-11-29] MEDS: MULTIVITAMIN TAB PO SCH (08:51)
[2017-11-29] MEDS: PANTOPRAZOLE SOD 40 MG DELAYED RELEASE TAB PO SCH (08:51)
[2017-11-29] MEDS: THIAMINE HCL 200 MG/2 ML VIAL IM SCH (08:51)
--- NOTE | 2017-11-29 11:34 | RADRPT ---
EXAM DATE: 11/29/2017 11:29 AM EDT AGE/SEX: 67 years / Male INDICATIONS: Pain. Recent stroke. CLINICAL DATA: This is the patient's initial encounter. Patient reports that signs and symptoms have been present for 4 - 6 days and indicates a pain score of 7/10. MEDICAL/SURGICAL HISTORY: . Hypercholesterolemia. Chronic obstructive pulmonary disease. . Ch olecystectomy. Orthopedic surgeries. COMPARISON: No prior [facility] exams available for comparison. FINDINGS: The lumbar spine demonstrates severe disc space narrowing with bony productive changes seen at L4/L5 and L5/S1. There is 5 mm of retrolisthesis of L4 on L5 and approximately 1.1 cm of anterolisthesis of L5 on S1. Severe facet degenerative changes are seen within the lower lumbar spine. The vertebral lola dies maintain normal height. The bones appear mildly osteopenic. CONCLUSION: Severe degenerative disc and facet degenerative changes identified within the lower lumbar spine with retrolisthesis of L4 and L5 and anterolisthesis of L5 on S1. This may reflect the presence of partia lly defects which are not visualized on these views. Electronically signed by: Shahida Perez MD 11/29/2017 11:32 AM EDT
[2017-11-29 12:00] VITALS: BP 118/65; PULSE 80; RESP 16; TEMP 97.8; O2SAT 95
--- NOTE | 2017-11-29 12:03 | HHI.PR ---
Subjective Remarks Follow-up visit seizure, alcohol abuse. Patient seen and examined today laying in bed. Complaints of back pain lumbar area. States it has been bothering him. He has been taking Tylenol [id number]. Denies SOB/ dyspnea. Denies chest pain, palpitations. Reports occasional headaches, dizziness. Denies fevers, chills, n/v/d. Denies dysuria. Objective Vitals Vital Signs Date Time Temp Pulse Resp B/P (MAP) Pulse Ox O2 Delivery O2 Flow Rate FiO2 11/29/17 08:00 98.3 85 16 129/73 (91) 95 11/29/17 04:15 98.1 91 18 121/81 (94) 94 11/29/17 00:25 98.0 97 18 115/72 (86) 94 11/28/17 23:47 89 11/28/17 19:46 84 11/28/17 19:45 98.0 80 18 101/54 (70) 94 11/28/17 16:00 97.6 80 23 132/87 (102) 98 I/O 11/28/17 11/28/17 11/28/17 11/29/17 11/29/17 11/29/17 07:00 15:00 23:00 07:00 15:00 23:00 Intake Total 360 ml 880 ml 420 ml Balance 360 ml 880 ml 420 ml Intake Oral 360 ml 880 ml 420 ml # Voids 2 5 4 # Bowel Movements 0 1 1 Result Diagram: 11/29/17 0355 11/29/17 0355 Imaging Last Impressions Lumbar Spine X-Ray 11/29/17 0000 Signed Impressions: CONCLUSION: Severe degenerative disc and facet degenerative changes identified within the l ower lumbar spine with retrolisthesis of L4 and L5 and anterolisthesis of L5 on S1. This may reflect the presence of partially defects which are not visualize d on these views. Brain MRI 11/28/17 0000 Signed Impressions: CONCLUSION: 1. Abnormal increased T2 signal identified within subcortical white matter inv olving the right frontal parietal region. No restricted diffusion or abnormal e nhancement, however, given the asymmetry this area is concerning. Differential diagnosis includes old infarct or possible neoplasm. 2. Extensive white matter atrophic changes greater than expected for the patie nt's age. Head CT 11/26/17 0000 Signed Impressions: CONCLUSION: 1. Old area of encephalomalacia in the right frontal lobe stable compared to p revious study. 2. No acute intracranial abnormality. 3. 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 This is only partia lly visualized. Objective Remarks GENERAL: This is a well-nourished, well-developed patient, in no apparent distress. SKIN: Warm and dry. HEENT: Normocephalic. Pupils equal round and reactive. Nose without bleeding. Airway patent. NECK: Trachea midline. No JVD. Supple. CARDIOVASCULAR: Regular rate and rhythm without murmurs, gallops, or rubs. RESPIRATORY: Clear to auscultation. Breath sounds equal bilaterally. No wheezes , rales, or rhonchi. GASTROINTESTINAL: Abdomen soft, non-tender, nondistended. Bowel Sounds normoactive x4. MUSCULOSKELETAL: Extremities without clubbing, cyanosis, or edema. Tenderness to palpate lumbar area. NEUROLOGICAL: Awake and alert. Oriented to time, place, person. No focal neuro deficit. Moves all extremities. Normal speech. Procedures None A/P Assessment and Plan 67-year-old male with a history of chronic alcohol abuse who presents following seizure this morning while visiting family. Low back pain -Lumbar spine x-ray showed severe degenerative disc and facet degenerative changes identified within the lower lumbar spine with retrolisthesis of L4 and L5 and anterolisthesis of L5 on S1. This may reflect the presence of partially defects which are not visualized on these views -Toradol 15 mg IV 3 days. Baclofen 10 mg 3 times daily -Continue to monitor. May need to follow-up and outpatient Seizure: Likely secondary to alcohol withdrawal. -EEG report noted. -Neurology consult appreciate recommendation. Recommended for Keppra 500 mg twice daily. Parenteral thiamine. MRI. -MRI showed abnormal increased T2 signal identified with subcortical white matter involving the right frontoparietal region. No restricted diffusion or abnormal enhancement, however given the symmetry this area is concerning. Differential diagnosis includes old infarct or possible neoplasm. Extensive white matter atrophic changes greater than expected for the patient's age. -Seizure precautions Acute alcohol withdrawal: - Continue CIWA protocol. Continue thiamine IM Alcohol abuse: Patient has been counseled. Transaminitis: -Likely secondary to alcoholic hepatitis. -Viral hepatitis panel negative. Monitor labs. -Avoid excessive Tylenol use Anion gap metabolic acidosis: Closed likely secondary to alcohol, dehydration Hyperglycemia: Likely secondary to stress reaction. -No history of diabetes. A1c is 4.9. Tobacco abuse: Counseled to quit smoking. Nicotine patch. Hyponatremia: Likely secondary to alcohol abuse. -Improved DVT prophylaxis: SCDs. Discharge Planning Abnormal MRI, will DC when cleared by neurology Renee Galvan Nov 29, 2017 12:03
[2017-11-29] MEDS: NICOTINE 21 MG/24 HR PATCH T-DERMAL SCH (13:00)
[2017-11-29] MEDS: KETOROLAC TROMETHAMINE 30 MG/ML (IVP) VIAL IV PUSH SCH ×3 (13:00→23:01)
[2017-11-29] MEDS: BACLOFEN 10 MG TAB PO SCH ×2 (13:01→21:40)
[2017-11-29 13:24] LABS: ALBUMIN 2.8 GM/DL (3.4-5.0); DIRECT BILIRUBIN ADULT 0.2 MG/DL (0.0-0.2)
[2017-11-29 13:25] LABS: INDIRECT BILIRUBIN 0.3 MG/DL (0.0-0.8); TOTAL BILIRUBIN ADULT 0.5 MG/DL (0.2-1.0); TOTAL PROTEIN 6.1 GM/DL (6.4-8.2)
[2017-11-29 19:55] VITALS: BP 132/72; PULSE 74; RESP 18; TEMP 97.7; O2SAT 98
[2017-11-30] VITALS: BP 124/66; PULSE 78; RESP 18; TEMP 97.9; O2SAT 96
[2017-11-30 04:00] VITALS: BP 152/75; PULSE 99; RESP 18; TEMP 98.3; O2SAT 95
[2017-11-30] MEDS: KETOROLAC TROMETHAMINE 30 MG/ML (IVP) VIAL IV PUSH SCH ×3 (05:54→18:00)
[2017-11-30] MEDS: BACLOFEN 10 MG TAB PO SCH ×3 (05:54→20:58)
[2017-11-30 08:00] VITALS: BP 132/60; PULSE 75; RESP 18; TEMP 97.8; O2SAT 97
[2017-11-30] MEDS ORDERED: THIAMINE HCL 100 MG TAB PO SCH (09:00)
[2017-11-30] MEDS: PANTOPRAZOLE SOD 40 MG DELAYED RELEASE TAB PO SCH (09:47)
[2017-11-30] MEDS: ACETAMINOPHEN 325 MG TAB PO PRN ×2 (09:47→20:58)
[2017-11-30] MEDS: levETIRAcetam 500 MG TAB PO SCH ×2 (09:47→20:58)
[2017-11-30] MEDS: MULTIVITAMIN TAB PO SCH (09:47)
[2017-11-30] MEDS: THIAMINE HCL 200 MG/2 ML VIAL IM SCH (09:48)
[2017-11-30] MEDS: NICOTINE 21 MG/24 HR PATCH T-DERMAL SCH (09:48)
[2017-11-30] MEDS: SODIUM CHLORIDE 0.9% FLUSH 10 ML FLUSH IV FLUSH SCH ×2 (09:48→20:59)
[2017-11-30] MEDS: REMOVE OLD PATCH T-DERMAL SCH (09:49)
[2017-11-30 12:00] VITALS: BP 125/66; PULSE 75; RESP 18; TEMP 98; O2SAT 96
--- NOTE | 2017-11-30 13:54 | HHI.PR ---
Subjective Remarks c/o low back pain. no headache, no weakness or numbness. no visual difficulty. no problems with swallowing. Objective Vitals Vital Signs Date Time Temp Pulse Resp B/P (MAP) Pulse Ox O2 Delivery O2 Flow Rate FiO2 11/30/17 08:00 Room Air 11/30/17 04:00 98.3 99 18 152/75 (100) 95 11/30/17 00:00 97.9 78 18 124/66 (85) 96 11/29/17 19:55 97.7 74 18 132/72 (92) 98 I/O 11/29/17 11/29/17 11/29/17 11/30/17 11/30/17 11/30/17 07:00 15:00 23:00 07:00 15:00 23:00 Intake Total 420 ml 680 ml Balance 420 ml 680 ml Intake Oral 420 ml 680 ml # Voids 4 5 # Bowel Movements 1 0 Result Diagram: 11/29/17 0355 11/29/17 0355 Objective Remarks GENERAL: This is a well-nourished, well-developed patient, in no apparent distress. CARDIOVASCULAR: Regular rate and rhythm RESPIRATORY: Clear to auscultation. Breath sounds equal bilaterally. No wheezes , rales, or rhonchi. GASTROINTESTINAL: Abdomen soft, non-tender, nondistended. Normal active bowel sounds MUSCULOSKELETAL: Extremities without clubbing, cyanosis, or edema. NEURO: Alert & Oriented x4 to person, place, time, situation. Moves all ext x4 Procedures None A/P Assessment and Plan 67-year-old male with a history of chronic alcohol abuse who presents following seizure this morning while visiting family. Seizure: Likely secondary to alcohol withdrawal. -EEG report noted. -Neurology consult appreciate recommendation. Recommended for Keppra 500 mg twice daily. Parenteral thiamine. Seizure precautions Brain lesion: -MRI showed abnormal increased T2 signal identified with subcortical white matter involving the right frontoparietal region. No restricted diffusion or abnormal enhancement, however given the symmetry this area is concerning. Differential diagnosis includes old infarct or possible neoplasm. Extensive white matter atrophic changes greater than expected for the patient's age. Await Neurology recommendations. Consult Neurosurgery Low back pain -Lumbar spine x-ray showed severe degenerative disc and facet degenerative changes identified within the lower lumbar spine with retrolisthesis of L4 and L5 and anterolisthesis of L5 on S1. This may reflect the presence of partially defects which are not visualized on these views -Toradol 15 mg IV 3 days. Baclofen 10 mg 3 times daily -Continue to monitor. May need to follow-up as outpatient Acute alcohol withdrawal: - Continue CIWA protocol. Continue thiamine IM and switch to PO Alcohol abuse: Patient has been counseled. Transaminitis: -Likely secondary to alcoholic hepatitis. -Viral hepatitis panel negative. Monitor labs. -Avoid excessive Tylenol use Anion gap metabolic acidosis: Closed likely secondary to alcohol, dehydration Hyperglycemia: Likely secondary to stress reaction. -No history of diabetes. A1c is 4.9. Tobacco abuse: Counseled to quit smoking. Nicotine patch. Hyponatremia: Likely secondary to alcohol abuse. -Improved DVT prophylaxis: SCDs. Discharge Planning await Neurology and Neurosurgery consult recommendations Jemma Ocampo MD Nov 30, 2017 13:54
--- NOTE | 2017-11-30 15:58 | PD.CONS ---
[facility] Service neurosurgery Consult Requested By Dr concepcion Reason for Consult Brain lesion Primary Care Physician No Primary Care Physician History of Present Illness Mr. Lott is a 67-year-old man who has a history of alcohol abuse, apparently quit drinking 2 or 3 days ago. He had a seizure in the morning. He does not recall it, but did have a postictal state and was brought to the ER. No tongue biting. No incontinence of stool or urine. He has had no prior history of seizures. He denies any headaches nausea vomiting. Denies any visual changes. Denies any hearing loss. He denies any weakness of his upper or lower extremities. He denies any sensory loss MRI of the brain show a brain lesion. Neurosurgical consultation was requested Past Family Social History Allergies: Coded Allergies: No Known Allergies (Unverified Allergy, Unknown, 11/26/17) Past Medical History History of chronic alcoholism. Past Surgical History Hand surgeries in the past Active Ordered Medications Current Medications Sodium Chloride (NS Flush) 2 ml UNSCH PRN IVF FLUSH AFTER USING IV ACCESS Last administered on 11/26/17at 13:44; Start 11/26/17 at 10:00; Stop 11/27/17 at 21:40 ; Status DC Thiamine HCl 100 mg/Sodium Chloride 101 ml @ 100 mls/hr ONCE ONCE IV Last administered on 11/26/17at 10:59; Start 11/26/17 at 10:00; Stop 11/26/17 at 11:00 ; Status DC Phenytoin Sodium 1000 mg/Sodium Chloride 120 ml @ 360 mls/hr ONCE ONCE IV Last administered on 11/26/17at 13:33; Start 11/26/17 at 11:45; Stop 11/26/17 at 12:04; Status DC Sodium Chloride 1,000 ml @ 125 mls/hr Q8H IV Last administered on 11/26/17at 20 :16; Start 11/26/17 at 12:30; Stop 11/27/17 at 18:01; Status DC Sodium Chloride (NS Flush) 2 ml UNSCH PRN IV FLUSH FLUSH AFTER USING IV ACCESS Last administered on 11/29/17at 23:01; Start 11/26/17 at 13:15 Sodium Chloride (NS Flush) 2 ml BID IV FLUSH Last administered on 11/30/17at 09: 48; Start 11/26/17 at 21:00 Sodium Chloride 1,000 ml @ 100 mls/hr Q10H IV Last administered on 11/27/17at 08 :23; Start 11/26/17 at 13:08; Stop 11/29/17 at 12:11; Status DC Thiamine HCl (Vitamin B1) 100 mg DAILY PO ; Start 11/30/17 at 09:00; Stop at 09:00; Status DC Flumazenil (Romazicon Inj) 0.2 mg Q1M PRN IV PUSH SEE LABEL COMMENTS; Start at 13:15 Lorazepam (Ativan) 1 mg Q4H PRN PO CIWA 8 - 10 Last administered on 11/27/17at 04 :20; Start 11/26/17 at 13:15 Lorazepam (Ativan Inj) 1 mg Q4H PRN IV PUSH CIWA 8 - 10 Last administered on at 13:43; Start 11/26/17 at 13:15 Lorazepam (Ativan) 2 mg Q2H PRN PO CIWA 11-14; Start 11/26/17 at 13:15 Lorazepam (Ativan Inj) 2 mg Q2H PRN IV PUSH CIWA 11-14; Start 11/26/17 at 13:15 Lorazepam (Ativan Inj) 2 mg Q1H PRN IV PUSH CIWA 15-20; Start 11/26/17 at 13:15 Lorazepam (Ativan Inj) 2 mg Q15M PRN IV PUSH CIWA > 20; Start 11/26/17 at 13:15 Ondansetron HCl (Zofran Odt) 4 mg Q6H PRN PO NAUSEA OR VOMITING Last administered on 11/28/17at 21:09; Start 11/26/17 at 15:00 Thiamine HCl (Thiamine Inj) 100 mg DAILY@1800 IM Last administered on 11/27/17at 18:45; Start 11/27/17 at 18:00; Stop 11/28/17 at 11:43; Status DC Acetaminophen (Tylenol) 650 mg Q4H PRN PO fever, pain 2-10 Last administered on 11/30/17at 09:47; Start 11/27/17 at 21:45 Gadodiamide (Omniscan Pf Inj) 14 ml STK-MED ONCE IVCONTRAST Last administered on 11/28/17at 08:06; Start 11/28/17 at 08:06; Stop 11/28/17 at 08:07; Status DC Potassium Chloride (KCl) 60 meq ONCE ONCE PO Last administered on 11/28/17at 09: 07; Start 11/28/17 at 08:30; Stop 11/28/17 at 08:31; Status DC Magnesium Oxide (Mag-Ox) 400 mg ONCE ONCE PO Last administered on 11/28/17at 09: 08; Start 11/28/17 at 08:30; Stop 11/28/17 at 08:31; Status DC Potassium Bicarb/ Potassium Chloride (K-Lyte Cl Eff) 50 meq ONCE ONCE PO Last administered on 11/28/17at 09:07; Start 11/28/17 at 08:30; Stop 11/28/17 at 08: 31; Status DC Thiamine HCl (Vitamin B1) 100 mg DAILY PO ; Start 11/28/17 at 11:45; Stop at 11:48; Status DC Multivitamins (Theragran) 1 tab DAILY PO Last administered on 11/30/17 09:47; Start 11/28/17 at 11:45 Levetriacetam (Keppra) 500 mg Q12HR PO Last administered on 11/30/17 09:47; Start 11/28/17 at 14:00 Albuterol Sulfate (Proair Hfa Inh) 2 puff Q4HR PRN INH SHORTNESS OF BREATH; Start 11/28/17 at 13:00 Pantoprazole Sodium (Protonix) 40 mg DAILY PO Last administered on 11/30/17 09: 47; Start 11/28/17 at 11:45 Thiamine HCl (Thiamine Inj) 100 mg DAILY IM Last administered on 11/30/17 09:48 ; Start 11/29/17 at 09:00 Meclizine HCl (Antivert) 25 mg Q8H PRN PO DIZZINESS; Start 11/28/17 at 14:00 Temazepam (Restoril) 7.5 mg ONCE ONCE PO Last administered on 11/28/17at 22:51; Start 11/28/17 at 21:15; Stop 11/28/17 at 21:16; Status DC Baclofen (Lioresal) 10 mg ONCE ONCE PO Last administered on 11/29/17at 08:50; Start 11/29/17 at 08:30; Stop 11/29/17 at 08:34; Status DC Baclofen (Lioresal) 10 mg Q8HR PO Last administered on 11/30/17at 14:14; Start at 14:00 Ketorolac Tromethamine (Toradol Inj) 15 mg Q6HR IV PUSH Last administered on 11/30/17at 14:14; Start 11/29/17 at 12:15; Stop 12/02/17 at 12:14 Nicotine (Habitrol 21 Mg Patch.24 Hr) 1 patch DAILY T-DERMAL Last administered on 11/30/17at 09:48; Start 11/29/17 at 12:15 Miscellaneous Information 1 DAILY T-DERMAL Last administered on 11/30/17at 09:49 ; Start 11/30/17 at 09:00 Family History He denies any family history of diabetes, hypertension, strokes Social History Patient smokes one half pack per day for his whole life he says. Patient drinks 6 beers per day. Patient quit drinking liquor 6 weeks ago. His last drink was 2 days ago. He denies any illicit drugs. Physical Exam Vital Signs Vital Signs Date Time Temp Pulse Resp B/P (MAP) Pulse Ox O2 Delivery O2 Flow Rate FiO2 11/30/17 12:00 98.0 75 18 125/66 (85) 96 11/30/17 08:00 Room Air 11/30/17 08:00 97.8 75 18 132/60 (84) 97 11/30/17 04:00 98.3 99 18 152/75 (100) 95 11/30/17 00:00 97.9 78 18 124/66 (85) 96 11/29/17 19:55 97.7 74 18 132/72 (92) 98 Physical Exam Mr lott is alert, awake and oriented to time, place and person. Speech is fluent. Cranial nerve examination: pupils to be equal, round and reactive to light. Extra-ocular movements are intact. Facial motor and sensory function are normal and symmetrical. Gross hearing appears intact. Sternocleidomastoid and trapezius muscles are symmetrical. Other cranial nerves are intact. Neck is soft and supple with a good range of motion without pain. Muscle strength is normal in all muscle groups of both upper and lower extremities. Sensory examination is intact to light touch and pin prick in both the upper and lower extremities. Deep tendon reflexes are symmetrical in both upper and lower extremities. There is a bilateral plantar flexion response. Cerebellar examination is unremarkable, without deficits. GENERAL: This is a well-nourished, well-developed patient, in no apparent distress. Patient disoriented to year and date. Carries on appropriate conversation however is generally confused SKIN: No rashes, ecchymoses or lesions. Cool and dry. HEAD: Atraumatic. Normocephalic. No temporal or scalp tenderness. EYES: Pupils equal round and reactive. Extraocular motions intact. No scleral icterus. No injection or drainage. ENT: Nose without bleeding, purulent drainage or septal hematoma. Throat without erythema, tonsillar hypertrophy or exudate. Uvula midline. Airway patent. NECK: Trachea midline. No JVD or lymphadenopathy. Supple, nontender, no meningeal signs. CARDIOVASCULAR: Regular rate and rhythm without murmurs, gallops, or rubs. RESPIRATORY: Clear to auscultation. Breath sounds equal bilaterally. No wheezes , rales, or rhonchi. GASTROINTESTINAL: Abdomen soft, non-tender, nondistended. No hepato-splenomegaly , or palpable masses. No guarding. Result Diagram: 11/29/17 0355 11/29/17 0355 Attending Statement I reviewed his clinical and radiological studies including Last 48 hours Impressions Lumbar Spine X-Ray 11/29/17 0000 Signed Impressions: CONCLUSION: Severe degenerative disc and facet degenerative changes identified within the l ower lumbar spine with retrolisthesis of L4 and L5 and anterolisthesis of L5 on S1. This may reflect the presence of partially defects which are not visualize d on these views. CT of the brain: Old area of encephalomalacia, right frontal lobe, stable compared to a previous study of 09/29/2014. This brain lesion is very specific. It could represent almost anything. It may not be related to his seizures, as his seizure could be related to alcohol withdrawal The alternatives of treatment have been discussed with the patient. I recommend conservative management with a follow-up MRI of the brain in 3 months Keppra 500 mg b.i.d. The patient was consulted to abstain from alcohol Pulmonary. Continue aggressive pulmonary toilette, nasotracheal suction, and breathing treatments with nebulizers. Daily PT and OT Renal. Continue to monitor closely urine output, BUN and creatinine Endocrine. Continue to Monitor serial Acu checks and SSI as needed in detail ID continue to monitor for signs of infection Continue Protonix for stress ulcer prophylaxis Continue Abhijit hose and SCD's for DVT prophylaxis Further recommendations will be provided depending on the patient's clinical evaluation and follow up studies. Schuyler Oropeza MD Nov 30, 2017 15:57
[2017-11-30 20:05] VITALS: PULSE 75
[2017-11-30 20:45] VITALS: BP 121/67; PULSE 75; RESP 18; TEMP 97.4; O2SAT 96
[2017-12-01] VITALS: PULSE 73
[2017-12-01] MEDS: KETOROLAC TROMETHAMINE 30 MG/ML (IVP) VIAL IV PUSH SCH ×3 (00:10→12:00)
[2017-12-01 00:45] VITALS: BP 136/72; PULSE 77; RESP 17; TEMP 98.4; O2SAT 95
[2017-12-01 04:35] VITALS: BP 132/74; PULSE 87; RESP 17; TEMP 98.1; O2SAT 96
[2017-12-01] MEDS: BACLOFEN 10 MG TAB PO SCH (06:21)
[2017-12-01] MEDS: NICOTINE 21 MG/24 HR PATCH T-DERMAL SCH (09:00)
[2017-12-01] MEDS: REMOVE OLD PATCH T-DERMAL SCH (09:00)
[2017-12-01] MEDS: MULTIVITAMIN TAB PO SCH (09:35)
[2017-12-01] MEDS: PANTOPRAZOLE SOD 40 MG DELAYED RELEASE TAB PO SCH (09:35)
[2017-12-01] MEDS: levETIRAcetam 500 MG TAB PO SCH (09:35)
[2017-12-01] MEDS: THIAMINE HCL 200 MG/2 ML VIAL IM SCH (09:36)
[2017-12-01] MEDS: SODIUM CHLORIDE 0.9% FLUSH 10 ML FLUSH IV FLUSH SCH (09:37)
--- NOTE | 2017-12-01 09:59 | HHI.PR ---
Subjective Remarks Patient states that he is feeling better. No other complaints. No headaches. No visual changes. No weakness or numbness. No seizures overnight. Objective Vitals Vital Signs Date Time Temp Pulse Resp B/P (MAP) Pulse Ox O2 Delivery O2 Flow Rate FiO2 12/01/17 04:35 98.1 87 17 132/74 (93) 96 12/01/17 00:45 98.4 77 17 136/72 (93) 95 12/01/17 00:00 73 11/30/17 20:45 97.4 75 18 121/67 (85) 96 11/30/17 20:05 75 11/30/17 12:00 98.0 75 18 125/66 (85) 96 I/O 11/30/17 11/30/17 11/30/17 12/01/17 12/01/17 12/01/17 06:59 14:59 22:59 06:59 14:59 22:59 Intake Total 680 ml 600 ml 360 ml Balance 680 ml 600 ml 360 ml Intake Oral 680 ml 600 ml 360 ml # Voids 5 3 2 # Bowel Movements 0 0 Result Diagram: 11/29/17 0355 11/29/17 0355 Objective Remarks GENERAL: This is a well-nourished, well-developed patient, in no apparent distress. CARDIOVASCULAR: Regular rate and rhythm RESPIRATORY: Clear to auscultation. Breath sounds equal bilaterally. No wheezes , rales, or rhonchi. GASTROINTESTINAL: Abdomen soft, non-tender, nondistended. Normal active bowel sounds MUSCULOSKELETAL: Extremities without clubbing, cyanosis, or edema. NEURO: Alert & Oriented x4 to person, place, time, situation. 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 Seizure: Likely secondary to alcohol withdrawal. -EEG report noted. -Neurology consult appreciate recommendation. Recommended for Keppra 500 mg twice daily. Parenteral thiamine. Seizure precautions Epileptic encephalopathy this is resolved -post seizure and currently on anticonvulsants Brought 500 mg p.o. twice daily. Counseled patient no driving for the next 3-6 months. Brain lesion: -MRI showed abnormal increased T2 signal identified with subcortical white matter involving the right frontoparietal region. No restricted diffusion or abnormal enhancement, however given the symmetry this area is concerning. Differential diagnosis includes old infarct or possible neoplasm. Extensive white matter atrophic changes greater than expected for the patient's age. Appreciate neurosurgery consultation, Dr. Oropeza recommended conservative treatment and repeat MRI in 3 months. Low back pain -Lumbar spine x-ray showed severe degenerative disc and facet degenerative changes identified within the lower lumbar spine with retrolisthesis of L4 and L5 and anterolisthesis of L5 on S1. This may reflect the presence of partially defects which are not visualized on these views -Toradol 15 mg IV 3 days. Baclofen 10 mg 3 times daily versus Flexeril as needed -Continue to monitor. May need to follow-up as outpatient Acute alcohol withdrawal: -No active symptoms at this time - Continue CIWA protocol. Continue thiamine IM and switch to PO Alcohol abuse: Patient has been counseled. Transaminitis: -Likely secondary to alcoholic hepatitis. -Viral hepatitis panel negative. Monitor labs. -Avoid excessive Tylenol use Anion gap metabolic acidosis: Closed likely secondary to alcohol, dehydration Hyperglycemia: Likely secondary to stress reaction. -No history of diabetes. A1c is 4.9. Tobacco abuse: Counseled to quit smoking. Nicotine patch. Hyponatremia: Likely secondary to alcohol abuse. -Improved DVT prophylaxis: SCDs. Discharge Planning Discharge to home with outpatient follow-up. Jemma Ocampo MD Dec 01, 2017 09:59
[2017-12-01] MEDS ORDERED: LEVE500 PO (10:02)
[2017-12-01] MEDS ORDERED: CYCL10TA PO (10:02)
--- NOTE | 2017-12-01 10:03 | HHI.DS ---
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 No family at bedside, and history is limited secondary to postictal state, generalized confusion. She reports feeling fine this morning however. Denies any recent illness. He reports that he quit drinking beer about 2 days ago. He denies any previous history of seizures. Currently he says he feels all right. Denies any chest pain, shortness of breath, nausea, vomiting, lightheadedness, dizziness. CBC/BMP: 11/29/17 0355 11/29/17 0355 Significant Findings Laboratory Tests Test 11/28/17 13:33 11/29/17 03:55 Random Glucose 182 MG/DL (74-106) 109 MG/DL (74-106) Red Blood Count 4.01 MIL/MM3 (4.50-5.90) Mean Corpuscular Volume 102.8 FL (80.0-100.0) Mean Corpuscular Hemoglobin 34.4 PG (27.0-34.0) Monocytes (%) (Auto) 12.4 % (0.0-8.0) Aspartate Amino Transf (AST/SGOT) 252 U/L (15-37) Alanine Aminotransferase (ALT/SGPT) 139 U/L (12-78) Alkaline Phosphatase 135 U/L (45-117) Total Protein 6.1 GM/DL (6.4-8.2) Albumin 2.8 GM/DL (3.4-5.0) Imaging Last Impressions Lumbar Spine X-Ray 11/29/17 0000 Signed Impressions: CONCLUSION: Severe degenerative disc and facet degenerative changes identified within the l ower lumbar spine with retrolisthesis of L4 and L5 and anterolisthesis of L5 on S1. This may reflect the presence of partially defects which are not visualize d on these views. Brain MRI 11/28/17 0000 Signed Impressions: CONCLUSION: 1. Abnormal increased T2 signal identified within subcortical white matter inv olving the right frontal parietal region. No restricted diffusion or abnormal e nhancement, however, given the asymmetry this area is concerning. Differential diagnosis includes old infarct or possible neoplasm. 2. Extensive white matter atrophic changes greater than expected for the patie nt's age. Head CT 11/26/17 0000 Signed Impressions: CONCLUSION: 1. Old area of encephalomalacia in the right frontal lobe stable compared to p revious study. 2. No acute intracranial abnormality. 3. 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 This is only partia lly visualized. PE at Discharge GENERAL: This is a well-nourished, well-developed patient, in no apparent distress. CARDIOVASCULAR: Regular rate and rhythm RESPIRATORY: Clear to auscultation. Breath sounds equal bilaterally. No wheezes , rales, or rhonchi. GASTROINTESTINAL: Abdomen soft, non-tender, nondistended. Normal active bowel sounds MUSCULOSKELETAL: Extremities without clubbing, cyanosis, or edema. NEURO: Alert & Oriented x4 to person, place, time, situation. Moves all ext x4 Pt update on day of discharge No seizures. No weakness or numbness. No headaches. No visual changes. Hospital Course These are the medical issues addressed during this hospitalization: Seizure: Likely secondary to alcohol withdrawal. -EEG report noted and reviewed during hospitalization. -Neurology consult appreciate recommendation. Recommended for Keppra 500 mg twice daily. Parenteral thiamine. Seizure precautions Epileptic encephalopathy this is resolved -post seizure and currently on anticonvulsants Keppra 500 mg p.o. twice daily. Counseled patient no driving for the next 3-6 months. Brain lesion: -MRI showed abnormal increased T2 signal identified with subcortical white matter involving the right frontoparietal region. No restricted diffusion or abnormal enhancement, however given the symmetry this area is concerning. Differential diagnosis includes old infarct or possible neoplasm. Extensive white matter atrophic changes greater than expected for the patient's age. Appreciate neurosurgery consultation, Dr. Oropeza recommended conservative treatment and repeat MRI in 3 months. Low back pain -Lumbar spine x-ray showed severe degenerative disc and facet degenerative changes identified within the lower lumbar spine with retrolisthesis of L4 and L5 and anterolisthesis of L5 on S1. This may reflect the presence of partially defects which are not visualized on these views -Toradol 15 mg IV 3 days. Flexeril as needed -Continue to monitor. May need to follow-up as outpatient Acute alcohol withdrawal: -No active symptoms at this time - Continue CIWA protocol. Continue thiamine IM and switch to PO Alcohol abuse: Patient has been counseled. Transaminitis: -Likely secondary to alcoholic hepatitis. -Viral hepatitis panel negative. Monitor labs. -Avoid excessive Tylenol use Anion gap metabolic acidosis: Closed likely secondary to alcohol, dehydration Hyperglycemia: Likely secondary to stress reaction. -No history of diabetes. A1c is 4.9. Tobacco abuse: Counseled to quit smoking. Nicotine patch. Hyponatremia: Likely secondary to alcohol abuse. -Improved At this time, patient has gained maximum benefit and ready to be discharged to home with outpatient follow-up. Pt Condition on Discharge: Good Discharge Disposition: Discharge Home Discharge Time: <= 30 minutes Discharge Instructions DIET: Follow Instructions for: As Tolerated, No Restrictions Activities you can perform: See Additionl Instruction Activities to Avoid: Driving Other Activity Instructions: no driving for 3 to 6 months Follow up Referrals: Neurology - 2 Weeks with Morgan Mi MD PhD Neurosurgery - 3 Months with Schuyler Oropeza MD PCP Follow-up - 2-3 Days New Medications: Cyclobenzaprine (Flexeril) 10 Mg Tab 10 MG PO TID PRN for prn, #30 TAB 0 Refills Levetiracetam (Keppra) 500 Mg Tab 500 MG PO Q12HR for prevent seizure, #60 TAB Continued Medications: Albuterol 18 GM Inh (Ventolin Hfa 18 GM Inh) 90 Mcg/Act Aer 2 PUFF INH Q4-6H PRN for SHORTNESS OF BREATH, #1 INHALER 0 Refills Pantoprazole (Protonix) 40 Mg Tab 40 MG PO DAILY for Reflux, #30 TAB 0 Refills Jemma Ocampo MD Dec 01, 2017 10:03
== END 2017-12-01 14:23 | disposition home or self-care (01) | DRG 897 ==
LOC: NEPC 09:52 → NEDA 13:15 → NEPHCDU 15:55 → OBSVTOIN 11-27 11:28 → N06B 11-27 15:03
PROVIDERS: ADMIT Family Medicine; ATTEND Family Medicine
DX: F10.239 Alcohol dependence with withdrawal, unspecified (principal); E87.2 Acidosis; G93.89 Other specified disorders of brain; J44.9 Chronic obstructive pulmonary disease, unspecified; G40.89 Other seizures; E87.1 Hypo-osmolality and hyponatremia; K70.10 Alcoholic hepatitis without ascites; E78.00 Pure hypercholesterolemia, unspecified; R73.9 Hyperglycemia, unspecified; R27.0 Ataxia, unspecified; G93.9 Disorder of brain, unspecified; M51.36 Other intervertebral disc degeneration, lumbar region; M43.17 Spondylolisthesis, lumbosacral region; G40.409 Other generalized epilepsy and epileptic syndromes, not intractable, without status epilepticus; H91.90 Unspecified hearing loss, unspecified ear; F12.90 Cannabis use, unspecified, uncomplicated; F17.210 Nicotine dependence, cigarettes, uncomplicated; Y90.0 Blood alcohol level of less than 20 mg/100 ml
CPT/HCPCS: 70450; 70553; 72100; 76937; 80048; 80053; 80074; 80076; 80307; 81001; 82948; 83036; 83605; 83735; 85025; 85610; 93005; 95819; A9579; J1165; J1885; J2060; J3411; J7030